=== PATIENT | male | born 1980 | race African-American/Black ===

== ENCOUNTER 2016-07-12 05:24 | Observation (INO) | payer SELFPAY ==
[~2016-07-12] VITALS: Ht 182.9 cm; Wt 115.0 kg
[2016-07-12] VITALS (7 sets, daily range): BP systolic 133–193; BP diastolic 68–98; PULSE 56–74; RESP 16–18; TEMP 98.2; O2SAT 97–99
[~2016-07-12 05:24] MED LIST: IBUP-232 PO; LISI10TA3 PO
[2016-07-12] MEDS ORDERED: SODIUM CHLORIDE 0.9% FLUSH 5 ML FLUSH IVF PRN ×2 (05:45→14:30)
[2016-07-12] MEDS ORDERED: MORPHINE SULFATE 4 MG/ML INJ IV PUSH ONE ×2 (05:45→08:00)
--- NOTE | 2016-07-12 05:49 | PD ---
HPI Chief Complaint: Abdominal Pain Time Seen by Provider: 05:33 Travel History International Travel<30 days: No Contact w/Intl Traveler<30days: No Traveled to known affect area: No History of Present Illness HPI 35-year-old male with history of hypertension, brought in by ambulance for evaluation of chest and abdominal pain. Pain started about 5-6 hours ago, is located in his epigastric and periumbilical area of his abdomen as well as substernal chest. He describes pain as pressure/sharp/tingling sensation. Pain is moderate to severe, constant, no modifying factors. Mild dyspnea. He reports that he has been having a cough lately. No fevers. No known history of cardiac disease. He smokes about a half a pack of cigarettes per day. Patient was noted to have a blood pressure 220 systolic which improved to 170 systolic after EMS administered one sublingual nitroglycerin. They also administered 162 mg of aspirin. PFSH Past Medical History Asthma: Yes Heart Rhythm Problems: No Cardiac Catheterization: No Cardiovascular Problems: Yes High Cholesterol: Yes Congestive Heart Failure: No Diabetes: No Diminished Hearing: No Heparin Induced Thrombocytopen: No Hypertension: Yes Immunizations Current: No Migraines: Yes Sleep Apnea: Yes (USE C-PAP AT NIGHT ) Ulcer: Yes Tetanus Vaccination: > 5 Years Influenza Vaccination: No Past Surgical History Coronary Artery Bypass Graft: No Other Surgery: Yes (LEFT WRIST CYST REMOVED X2) Family History Family Myocardial Infarction: No Social History Alcohol Use: No Tobacco Use: Yes (05/15 PPD) Substance Use: No Allergies-Medications (Allergen,Severity, Reaction): Coded Allergies: Coconut (Verified Allergy, Severe, BREAK OUT, 07/12/16) Reported Meds & Prescriptions Reported Meds & Active Scripts Active Review of Systems Except as stated in HPI: all other systems reviewed are Neg Physical Exam Narrative GENERAL: Well-developed, well-nourished, no acute distress. SKIN: Warm and dry. HEAD: Atraumatic. Normocephalic. EYES: Pupils equal and round. No scleral icterus. No injection or drainage. ENT: Mucous membranes pink and moist. NECK: Trachea midline. No JVD. CARDIOVASCULAR: Regular rate and rhythm. RESPIRATORY: No accessory muscle use. Clear to auscultation. Breath sounds equal bilaterally. GASTROINTESTINAL: Abdomen soft, nondistended. Moderate diffuse tenderness without peritoneal signs. MUSCULOSKELETAL: No obvious deformities. No clubbing. No cyanosis. No edema. NEUROLOGICAL: Awake and alert. No obvious cranial nerve deficits. Motor grossly within normal limits. Normal speech. PSYCHIATRIC: Appropriate mood and affect; insight and judgment normal. Data Data Last Documented VS Vital Signs Date Time Temp Pulse Resp B/P Pulse Ox O2 Delivery O2 Flow Rate FiO2 07/12/16 07:05 61 16 146/81 98 Room Air 07/12/16 05:32 98.2 Orders Complete Blood Count With Diff (07/12/16 05:36) Comprehensive Metabolic Panel (07/12/16 05:36) Lipase (07/12/16 05:36) Prothrombin Time / Inr (Pt) (07/12/16 05:36) Act Partial Throm Time (Ptt) (07/12/16 05:36) Urinalysis - C+S If Indicated (07/12/16 05:36) Ct Abd/Pel W Iv Contrast(Rout) (07/12/16 05:36) Iv Access Insert/Monitor (07/12/16 05:36) Ecg Monitoring (07/12/16 05:36) Oximetry (07/12/16 05:36) Sodium Chloride 0.9% Flush (Ns Flush) (07/12/16 05:45) Electrocardiogram (07/12/16 05:36) Ckmb (Isoenzyme) Profile (07/12/16 05:36) Troponin I (07/12/16 05:36) Morphine Inj (Morphine Inj) (07/12/16 05:45) CKMB (07/12/16 05:45) CKMB% (07/12/16 05:45) Iohexol 350 Inj (Omnipaque 350 Inj) (07/12/16 06:58) Ns (Bolus) Inj (07/12/16 07:30) Piperacil-Tazo 3.375 Gm Premix (Zosyn 3. (07/12/16 07:30) Labs Laboratory Tests Test 07/12/16 07/12/16 05:45 05:50 White Blood Count 14.5 TH/MM3 Red Blood Count 4.55 MIL/MM3 Hemoglobin 14.4 GM/DL Hematocrit 41.4 % Mean Corpuscular Volume 90.9 FL Mean Corpuscular Hemoglobin 31.7 PG Mean Corpuscular Hemoglobin 34.8 % Concent Red Cell Distribution Width 14.0 % Platelet Count 261 TH/MM3 Mean Platelet Volume 8.4 FL Neutrophils (%) (Auto) 75.7 % Lymphocytes (%) (Auto) 17.5 % Monocytes (%) (Auto) 5.6 % Eosinophils (%) (Auto) 0.7 % Basophils (%) (Auto) 0.5 % Neutrophils # (Auto) 11.0 TH/MM3 Lymphocytes # (Auto) 2.5 TH/MM3 Monocytes # (Auto) 0.8 TH/MM3 Eosinophils # (Auto) 0.1 TH/MM3 Basophils # (Auto) 0.1 TH/MM3 CBC Comment DIFF FINAL Differential Comment Prothrombin Time 10.3 SEC Prothromb Time International 0.9 RATIO Ratio Activated Partial 25.8 SEC Thromboplast Time Sodium Level 143 MEQ/L Potassium Level 3.6 MEQ/L Chloride Level 105 MEQ/L Carbon Dioxide Level 29.2 MEQ/L Anion Gap 9 MEQ/L Blood Urea Nitrogen 15 MG/DL Creatinine 1.52 MG/DL Estimat Glomerular Filtration 64 ML/MIN Rate Random Glucose 118 MG/DL Calcium Level 8.7 MG/DL Total Bilirubin 0.4 MG/DL Aspartate Amino Transf 15 U/L (AST/SGOT) Alanine Aminotransferase 22 U/L (ALT/SGPT) Alkaline Phosphatase 56 U/L Total Creatine Kinase 711 U/L Creatine Kinase MB 1.8 NG/ML Creatine Kinase MB % 0.3 % Troponin I LESS THAN 0.02 NG/ML Total Protein 7.4 GM/DL Albumin 3.4 GM/DL Lipase 121 U/L Urine Color YELLOW Urine Turbidity CLEAR Urine pH 6.0 Urine Specific Porter 1.021 Urine Protein TRACE mg/dL Urine Glucose (UA) NEG mg/dL Urine Ketones TRACE mg/dL Urine Occult Blood NEG Urine Nitrite NEG Urine Bilirubin NEG Urine Urobilinogen LESS THAN 2.0 MG/DL Urine Leukocyte Esterase NEG Urine RBC 1 /hpf Urine WBC 2 /hpf Urine Squamous Epithelial <1 /hpf Cells Urine Renal Epithelial Cells <1 /hpf Urine Mucus FEW /lpf Microscopic Urinalysis Comment CULT NOT INDICATED MDM Medical Decision Making Medical Screen Exam Complete: Yes Emergency Medical Condition: Yes Medical Record Reviewed: Yes Interpretation(s) EKG: Sinus, rate 56, normal axis, normal intervals, J-point elevation/early repolarization, nonspecific T-wave abnormality, no acute ischemic abnormality. Differential Diagnosis ACS, pneumothorax, peritonitis, PE, pneumonia, gastritis, peptic ulcer disease, pancreatitis, intra-abdominal infectious process, Narrative Course Initial vital signs show heart rate 61, blood pressure 193/85, pulse ox 97% on room air, oral temp of 98.2F. CBC shows WBC 14.5, hemoglobin 14.4, hematocrit 41.4, platelets 261, neutrophils 75.7%. CMP is remarkable for creatinine 1.52, GFR 64, otherwise unremarkable. Total CK 711. CK-MB is 0.2%. Troponin is negative. Lipase is 121. CT abdomen pelvis: CONCLUSION: 1. Wall thickening as well as pericholecystic fluid suggestive of acute cholecystitis. Clinical correlation is recommended. Rim-calcified gallstone in the expected region of the gallbladder neck. 2. Hepatomegaly. At approximately 7:00 AM at the end of my shift the patient was signed out to Dr. Moses who will consult Gen. surgery and disposition the patient. Isai Mercado MD Jul 12, 2016 05:49
[2016-07-12 06:01] LABS: BASOPHIL # 0.1 TH/MM3 (0-0.2); BASOPHIL % 0.5 % (0.0-2.0); EOSINOPHIL # 0.1 TH/MM3 (0-0.4); EOSINOPHIL % 0.7 % (0.0-4.0); HEMATOCRIT 41.4 % (39.0-51.0); HEMO FLAGS DIFF FINAL; LYMPH % 17.5 % (9.0-44.0); LYMPHOCYTE # 2.5 TH/MM3 (1.0-4.8); MEAN CELL VOLUME 90.9 FL (80.0-100.0); MEAN CORPUSCULAR HEMOGLOBIN 31.7 PG (27.0-34.0); MEAN CORPUSCULAR HGB CONC 34.8 % (32.0-36.0); MONO % 5.6 % (0.0-8.0); NEUT % 75.7 % (16.0-70.0); PLATELET COUNT 261 TH/MM3 (150-450); RED BLOOD COUNT 4.55 MIL/MM3 (4.50-5.90); WHITE BLOOD COUNT 14.5 TH/MM3 (4.0-11.0)
[2016-07-12 06:07] LABS: BLOOD, URINE NEG (NEG); GLUCOSE,URINE NEG (NEG); KETONE, URINE TRACE mg/dL (NEG); MUCUS URINE FEW /lpf (OCC); NITRITE,URINE NEG (NEG); RENAL EPITHELIAL CELLS <1 /hpf; SQUAMOUS EPITHELIAL CELL URINE <1 /hpf (0-5); URINE COLOR YELLOW (YELLW/STRAW)
[2016-07-12 06:08] LABS: COMMENT (UR) CULT NOT INDICATED; CULTURE IF INDICATED CULT NOT INDICATED
[2016-07-12 06:13] LABS: APTT (PATIENT) 25.8 SEC (24.3-30.1); INTERNATIONAL NORMALIZED RATIO 0.9 RATIO; PROTHROMBIN TIME - PATIENT 10.3 SEC (9.8-11.6)
[2016-07-12 06:29] LABS: ANION GAP 9 MEQ/L (5-15); AST (GOT) 15 U/L (15-37); BICARBONATE 29.2 MEQ/L (21.0-32.0); BLOOD UREA NITROGEN 15 MG/DL (7-18); CHLORIDE 105 MEQ/L (98-107); GLOMERULAR FILTRATION RATE 64 ML/MIN (>89); POTASSIUM 3.6 MEQ/L (3.5-5.1); SODIUM (NA) 143 MEQ/L (136-145)
[2016-07-12 06:34] LABS: ALKALINE PHOSPHATASE 56 U/L (45-117); ALT (GPT) 22 U/L (12-78); CREATINE KINASE 711 U/L (39-308); TOTAL BILIRUBIN ADULT 0.4 MG/DL (0.2-1.0)
[2016-07-12 06:46] LABS: CKMB 1.8 NG/ML (0.5-3.6)
[2016-07-12] MEDS ORDERED: IOHEXOL 350 MG/ML 10 ML VIAL (for RAD DIAG) IV ONE (06:58)
--- NOTE | 2016-07-12 07:20 | RADRPT ---
EXAM DATE/TIME: 07/12/2016 06:51 [facility] COMPARISON: CT ABDOMEN & PELVIS W CONTRAST, April 12, 2016, 7:27. INDICATIONS : Epigastric pain for five hours IV CONTRAST: 96 cc Omnipaque 350 (iohexol) IV ORAL CONTRAST: No oral contrast ingested. RADIATION DOSE: 18.51 CTDIvol (mGy) MEDICAL HISTORY : Cardiovascular disease. Hypertension. Asthma. SURGICAL HISTORY : None. ENCOUNTER: Initial ACUITY: 1 day PAIN SCALE: 5/10 LOCATION: epigastric TECHNIQUE: Volumetric scanning of the abdomen and pelvis was performed. Using automated exposure control and ad justment of the mA and/or kV according to patient size, radiation dose was kept as low as reasonably achievable to obtain optimal diagnostic quality images. FINDINGS: LOWER LUNGS: The visualized lower lungs are clear. LIVER: Hepatomegaly is noted. Homogeneous density without lesion. There is no dilation of the biliary tree. There is wall thickening as well as pericholecystic fluid suggestive of acute cholecystitis. Clinica l correlation is recommended. There is a rim-calcified gallstone in the expected region of the gallbl adder neck. SPLEEN: Normal size without lesion. PANCREAS: Within normal limits. KIDNEYS: Normal in size and shape. There is no mass, stone or hydronephrosis. ADRENAL GLANDS: Within normal limits. VASCULAR: There is no aortic aneurysm. BOWEL/MESENTERY: The stomach, small bowel, and colon demonstrate no acute abnormality. There is no free intraperitone al air or fluid. ABDOMINAL WALL: Within normal limits. RETROPERITONEUM: There is no lymphadenopathy. BLADDER: No wall thickening or mass. REPRODUCTIVE: Within normal limits. INGUINAL: There is no lymphadenopathy or hernia. MUSCULOSKELETAL: Within normal limits for patient age. CONCLUSION: 1. Wall thickening as well as pericholecystic fluid suggestive of acute cholecystitis. Clinical corre lation is recommended. Rim-calcified gallstone in the expected region of the gallbladder neck. 2. Hepatomegaly. Bruce Johnson MD on July 12, 2016 at 7:11 Board Certified Radiologist. This report was verified electronically.
[2016-07-12] MEDS ORDERED: SODIUM CHLOR 0.9% 1000 ML INJ 1,000 ML IV ONE (07:30)
[2016-07-12] MEDS ORDERED: PIPERACIL-TAZO 3.375 GM PREMIX 50 ML IV ONE (07:30)
[2016-07-12] MEDS ORDERED: NEOSTIGMINE 3 MG/3 ML SYR IV ONE (08:33)
[2016-07-12] MEDS ORDERED: PROPOFOL 200 MG/20 ML AMP IV ONE (08:33)
[2016-07-12] MEDS ORDERED: ONDANSETRON HCL 4 MG/2 ML VIAL IV PUSH ONE (08:33)
--- NOTE | 2016-07-12 09:35 | EKG ---
Date Performed: 07/12/2016 Time Performed: 05:34:57 PTAGE: 35 years EKG: SINUS BRADYCARDIA NONSPECIFIC T-WAVE ABNORMALITY BORDERLINE ECG PREVIOUS TRACING : 04/12/2016 06.12 DOCTOR: Abhinav Hernadez Interpretating Date/Time 07/12/2016 09:34:51
--- NOTE | 2016-07-12 09:39 | PD ---
Physical Exam Date Seen by Provider: Jul 12, 2016 Time Seen by Provider: 08:00 Narrative 35-year-old male came to the emergency room with history of abdominal pain in the epigastric region. He was seen by the previous ER physician. Please refer to his notes regarding detailed history and physical. His blood work showed leukocytosis. I was signed over to follow-up on the CAT scan which was ordered and waiting to be done and read. The CAT scan report came back as cholecystitis with pericholecystic fluid. I had reassessed the patient and he was saying that the pain was coming back. Patient was medicated for pain again. I have made him nothing by mouth and ordered 1 L of IV fluid bolus and Zosyn as antibiotic. I contacted Dr. Mynor Smith from general surgery who wanted the patient to stay nothing by mouth so that he could take him to the OR. He accepted the patient under his service for admission. I explained all this to the patient and he understands the plan. Data Data Last Documented VS Vital Signs Date Time Temp Pulse Resp B/P Pulse Ox O2 Delivery O2 Flow Rate FiO2 07/12/16 07:05 61 16 146/81 98 Room Air Orders Complete Blood Count With Diff (07/12/16 05:36) Comprehensive Metabolic Panel (07/12/16 05:36) Lipase (07/12/16 05:36) Prothrombin Time / Inr (Pt) (07/12/16 05:36) Act Partial Throm Time (Ptt) (07/12/16 05:36) Urinalysis - C+S If Indicated (07/12/16 05:36) Ct Abd/Pel W Iv Contrast(Rout) (07/12/16 05:36) Iv Access Insert/Monitor (07/12/16 05:36) Ecg Monitoring (07/12/16 05:36) Oximetry (07/12/16 05:36) Sodium Chloride 0.9% Flush (Ns Flush) (07/12/16 05:45) Electrocardiogram (07/12/16 05:36) Ckmb (Isoenzyme) Profile (07/12/16 05:36) Troponin I (07/12/16 05:36) Morphine Inj (Morphine Inj) (07/12/16 05:45) CKMB (07/12/16 05:45) CKMB% (07/12/16 05:45) Iohexol 350 Inj (Omnipaque 350 Inj) (07/12/16 06:58) Sodium Chlor 0.9% 1000 Ml Inj (Ns 1000 M (07/12/16 07:30) Piperacil-Tazo 3.375 Gm Premix (Zosyn 3. (07/12/16 07:30) Morphine Inj (Morphine Inj) (07/12/16 08:00) Admit Order (Ed Use Only) (07/12/16 07:48) Labs Laboratory Tests Test 07/12/16 07/12/16 05:45 05:50 White Blood Count 14.5 TH/MM3 Red Blood Count 4.55 MIL/MM3 Hemoglobin 14.4 GM/DL Hematocrit 41.4 % Mean Corpuscular Volume 90.9 FL Mean Corpuscular Hemoglobin 31.7 PG Mean Corpuscular Hemoglobin 34.8 % Concent Red Cell Distribution Width 14.0 % Platelet Count 261 TH/MM3 Mean Platelet Volume 8.4 FL Neutrophils (%) (Auto) 75.7 % Lymphocytes (%) (Auto) 17.5 % Monocytes (%) (Auto) 5.6 % Eosinophils (%) (Auto) 0.7 % Basophils (%) (Auto) 0.5 % Neutrophils # (Auto) 11.0 TH/MM3 Lymphocytes # (Auto) 2.5 TH/MM3 Monocytes # (Auto) 0.8 TH/MM3 Eosinophils # (Auto) 0.1 TH/MM3 Basophils # (Auto) 0.1 TH/MM3 CBC Comment DIFF FINAL Differential Comment Prothrombin Time 10.3 SEC Prothromb Time International 0.9 RATIO Ratio Activated Partial 25.8 SEC Thromboplast Time Sodium Level 143 MEQ/L Potassium Level 3.6 MEQ/L Chloride Level 105 MEQ/L Carbon Dioxide Level 29.2 MEQ/L Anion Gap 9 MEQ/L Blood Urea Nitrogen 15 MG/DL Creatinine 1.52 MG/DL Estimat Glomerular Filtration 64 ML/MIN Rate Random Glucose 118 MG/DL Calcium Level 8.7 MG/DL Total Bilirubin 0.4 MG/DL Aspartate Amino Transf 15 U/L (AST/SGOT) Alanine Aminotransferase 22 U/L (ALT/SGPT) Alkaline Phosphatase 56 U/L Total Creatine Kinase 711 U/L Creatine Kinase MB 1.8 NG/ML Creatine Kinase MB % 0.3 % Troponin I LESS THAN 0.02 NG/ML Total Protein 7.4 GM/DL Albumin 3.4 GM/DL Lipase 121 U/L Urine Color YELLOW Urine Turbidity CLEAR Urine pH 6.0 Urine Specific [place] 1.021 Urine Protein TRACE mg/dL Urine Glucose (UA) NEG mg/dL Urine Ketones TRACE mg/dL Urine Occult Blood NEG Urine Nitrite NEG Urine Bilirubin NEG Urine Urobilinogen LESS THAN 2.0 MG/DL Urine Leukocyte Esterase NEG Urine RBC 1 /hpf Urine WBC 2 /hpf Urine Squamous Epithelial <1 /hpf Cells Urine Renal Epithelial Cells <1 /hpf Urine Mucus FEW /lpf Microscopic Urinalysis Comment CULT NOT INDICATED MDM Supervised Visit with LACIE: No Physician Communication Physician Communication Dr. Smith Diagnosis Primary Impression: Acute cholecystitis Admitting Information Admitting Physician Requests: Admit Scripts Lisinopril 20 Mg Tab20 Mg PO DAILY #30 TAB Ref 3 Prov:Gutierrez Guzmán DO 07/13/16 Luis Alberto Moses MD Jul 12, 2016 09:39
[2016-07-12] MEDS ORDERED: BUPIVACAINE/EPINEPHRINE 0.25% PF 30 ML VIAL ONE (12:18)
[2016-07-12] MEDS ORDERED: fentaNYL CITRATE 250 MCG/5 ML AMP ONE (12:50)
[2016-07-12] MEDS ORDERED: FAMOTIDINE 20 MG/2 ML VIAL ONE (12:50)
[2016-07-12] MEDS ORDERED: DEXAMETHASONE SOD PHOS 4 MG/ML VIAL ONE (12:51)
[2016-07-12] MEDS ORDERED: MIDAZOLAM HCL 2 MG/2 ML VIAL ONE (12:51)
[2016-07-12] MEDS ORDERED: DICLOFENAC SODIUM 37.5 MG/ML VIAL IV PUSH ONE (12:51)
[2016-07-12] MEDS ORDERED: diphenhydrAMINE HCL 25 MG CAP PO PRN (14:30)
[2016-07-12] MEDS ORDERED: KETOROLAC TROMETHAMINE 30 MG/ML (IVP) VIAL IVP PRN (14:30)
[2016-07-12] MEDS ORDERED: Post-op Orders (for Pharmacy) MISC XX ONE (14:30)
[2016-07-12] MEDS ORDERED: MORPHINE SULFATE 4 MG/ML INJ IV PUSH PRN (14:30)
[2016-07-12] MEDS ORDERED: ONDANSETRON HCL 4 MG/2 ML VIAL IV PRN (14:30)
[2016-07-12] MEDS ORDERED: HYDROmorphone HCL PF 1 MG/ML VIAL IV PRN (14:30)
[2016-07-12] MEDS ORDERED: NALOXONE HCL 0.4 MG/ML AMP IV PRN (14:30)
[2016-07-12] MEDS ORDERED: ACETAMINOPHEN/HYDROcodone 325 MG/5 MG TAB PO PRN (14:30)
--- NOTE | 2016-07-12 14:35 | HHI.PR ---
Immediate Post Op Note Procedure Date: Jul 12, 2016 Pre Op Diagnosis: (1) Acute cholecystitis Post Op Diagnosis: (1) Acute cholecystitis Surgeon: Mynor Smith [employer] Operator(s): alex abel Procedure: lap imani Findings: acute cholecystitis Complications: none Specimen(s) removed: gallbladder Estimated blood loss: 50cc Anesthesia: General Drains: None Patient to: PACU Patient Condition: Good Mynor Smith MD Jul 12, 2016 14:35
[2016-07-12] MEDS ORDERED: ENALAPRILAT 1.25 MG/ML VIAL ONE (14:46)
[2016-07-12] MEDS: LACTATED RINGER'S 1000 ML INJ 1,000 ML IV SCH ×2 (15:00→20:42)
[2016-07-12] MEDS ORDERED: *morphine SULFATE 8 MG/ML PERIprocedure ONLY ONE (15:10)
--- NOTE | 2016-07-12 15:13 | MH ---
cc: AMRIT LAI M.D. DATE OF ADMISSION: 07/12/2016 CHIEF COMPLAINT Abdominal pain. HISTORY OF PRESENT ILLNESS Mr. Melo is a very pleasant 35-year-old -Citizen Of The [place] gentleman who presented to the emergency department this morning via ambulance for severe epigastric abdominal pain and chest pain. He states that he was awakened from sleep in the middle of the night with severe epigastric pain that radiated down toward his umbilical region and through to his sternum and back. It also went to the right side. He described it as a sharp pain with pressure. It was severe according to him. He was slightly short of breath secondary to the pain. He called 911 and was brought to the emergency room where he was worked up. He was seen and evaluated by Dr. Mercado and upon evaluation was found to have acute cholecystitis. The patient reports that he had a similar episode several months ago and was told it was not his heart but he was not told it was his gallbladder. He said the pain is almost identical. He had associated nausea, no vomiting. He had no fever or chills. Apparently he was hypertensive when EMS arrived and they gave him some nitroglycerin and got his blood pressure down to a normal level. The patient denies any jaundice or acholic stools. He states he ate some fried chicken yesterday. PAST MEDICAL HISTORY 1. Hypertension. 2. Sleep apnea. PAST SURGICAL HISTORY He had a Hernández's cyst removed from his right hand as a child. MEDICATIONS He takes no active medications. ALLERGIES HE IS ALLERGIC TO COCONUTS WHICH CAUSES HIVES AND SHORTNESS OF BREATH. FAMILY HISTORY Noncontributory. SOCIAL HISTORY He denies alcohol use. He reports smoking about 10 cigarettes a day. He lives here locally with his family. He is employed at [employer] as a cook. REVIEW OF SYSTEMS Please see HPI. PHYSICAL EXAMINATION VITAL SIGNS: Temperature 98, pulse 70, blood pressure 150/90, respiratory rate 20. GENERAL: In general this is a pleasant, obese -Citizen Of [place] male sitting in the emergency department in no apparent distress. HEENT: Pupils equal and reactive to light. Sclera white. Oropharynx is clear and moist. NECK: Supple. No masses. LUNGS: Clear to auscultation bilaterally. HEART: S1, S2, no murmur. ABDOMEN: Soft. Tender in the epigastric and right upper quadrant region with a positive Santos's sign. No hernias. EXTREMITIES: Free range of motion x4. NEUROLOGIC: Alert oriented x3. IMAGING CT scan of the abdomen and pelvis shows a gallstone lodged in the neck of the gallbladder with pericholecystic fluid, gallbladder wall edema, all consistent with acute cholecystitis LABORATORY White blood cell count 14, hemoglobin 14, platelet count 261. Electrolytes are all within normal limits. Slight elevation of creatinine at 1.52. LFTs all within normal limits. Troponin is less than 0.02. IMPRESSION Acute cholecystitis. PLAN The risks and benefits of cholecystectomy were discussed with the patient and he is agreeable. The Operating Room was notified at 0800 that I was available and the patient was ready to go to surgery. The patient will be worked in at some point today but the OR is not certain of the time. I discussed this with the patient and he is aware of the situation. MD KIM Morton/MARY /2:31 PM /3:02 PM
[2016-07-12] MEDS ORDERED: hydrALAZINE HCL 20 MG/ML VIAL ONE ×2 (15:21→16:46)
--- NOTE | 2016-07-12 15:21 | MP ---
cc: AMRIT LAI M.D. DATE OF SURGERY: 07/12/2016 PREOPERATIVE DIAGNOSIS Acute cholecystitis. POSTOPERATIVE DIAGNOSIS Acute cholecystitis. PROCEDURE PERFORMED Laparoscopic cholecystectomy. SURGEON Amrit Lai ANESTHESIA General endotracheal. COMPLICATIONS None. INDICATION FOR PROCEDURE Mr. Melo is a very pleasant 35-year-old gentleman who presented to the emergency department early this morning with complaints of severe abdominal pain and chest pain. He was worked up and found to have acute cholecystitis. He now presents for cholecystectomy. The risks and benefits of open and laparoscopic cholecystectomy was discussed with him and he was agreeable. DETAILS OF PROCEDURE The patient was identified, brought to the operating room and placed supine on the operating table. After adequate general endotracheal anesthesia had been achieved, the abdomen was prepped and draped in standard surgical fashion. The infraumbilical space was anesthetized 0.25% Marcaine. An infraumbilical incision was made. Dissection was carried down through subcutaneous tissue to the midline fascia. The midline fascia was incised sharply. A finger was then placed in the peritoneal cavity without difficulty. A blunt balloon trocar is inserted and the abdomen was insufflated to 15 mmHg using CO2 gas. Next, two 5 mm trocars were placed in the right upper quadrant after anesthetizing the skin and subcutaneous tissue with 0.25% Marcaine. Attention was directed to the right upper quadrant where a distended gallbladder was identified. There was a large stone lodged in the neck of the gallbladder. The gallbladder was retracted cephalad. The neck of the gallbladder was then carefully dissected. The cystic duct and cystic artery were clearly seen entering the neck of the gallbladder. They were dissected and confirmed in two planes. They were then clipped twice proximally, once distally and then divided. The gallbladder was then dissected out of the hepatic fossa using electrocautery Bovie. The gallbladder was then placed into an Endopouch bag and brought out through the infraumbilical port. We did have to enlarge the infraumbilical fascia incision in order to retrieve the gallbladder due to the large stone lodged in the neck. The gallbladder was inspected and found to contain a large stone wedged in the neck of it, and the clips were in place on the cystic duct stump without evidence of leakage of bile. The gallbladder was sent to pathology for analysis. Next, the abdominal cavity was re-visualized. The liver bed was completely hemostatic. Clips on the cystic artery and cystic duct stump were clearly seen and there was no evidence of leakage of bile or bleeding. 0.25% Marcaine was injected in the right upper quadrant. The abdomen was then carefully desufflated. The midline fascia was repaired with 0 Vicryl in [id number] fashion. Skin was closed with 4-0 Vicryl. The patient tolerated the procedure well, was awakened and brought to Recovery in stable condition. MD KIM Morton/MARY /2:31 PM /3:13 PM .2
[2016-07-12] MEDS ORDERED: MORPHINE SULFATE 4 MG/ML INJ ONE (16:47)
[2016-07-12] MEDS ORDERED: hydrALAZINE HCL 20 MG/ML VIAL IVP SCH (17:00)
[2016-07-12] MEDS ORDERED: cloNIDine HCL 0.1 MG TAB ONE (17:39)
[2016-07-12] MEDS: SODIUM CHLORIDE 0.9% FLUSH 5 ML FLUSH IVF SCH (20:43)
[2016-07-12] MEDS: ACETAMINOPHEN/HYDROcodone 325 MG/5 MG TAB PO PRN (20:45)
[2016-07-13] VITALS: BP 154/81; PULSE 69; RESP 16; TEMP 97.8; O2SAT 99
[2016-07-13] MEDS: ACETAMINOPHEN/HYDROcodone 325 MG/5 MG TAB PO PRN ×3 (00:31→13:21)
[2016-07-13 04:00] VITALS: BP 157/87; PULSE 50; RESP 17; TEMP 98.2; O2SAT 99
[2016-07-13 08:00] VITALS: BP 152/92; PULSE 59; RESP 18; TEMP 97.3; O2SAT 97
[2016-07-13] MEDS: SODIUM CHLORIDE 0.9% FLUSH 5 ML FLUSH IVF SCH (08:25)
[2016-07-13] MEDS ORDERED: amLODIPine BESYLATE 5 MG TAB PO SCH (09:30)
[2016-07-13 09:46] VITALS: O2SAT 98
[2016-07-13] MEDS ORDERED: LISI-515 PO (09:48)
[2016-07-13] MEDS ORDERED: HYDR-3516 PO (09:48)
--- NOTE | 2016-07-13 09:54 | PD.CONS ---
HPI Service [facility] Hospitalists Consult Requested By General surgery Reason for Consult Hypertension Primary Care Physician No Primary Care Physician Diagnoses: (1) Acute cholecystitis (2) Hypertension History of Present Illness Mr. Melo is a pleasant 35-year-old male who presented to the emergency department on 07/12/2016 with epigastric abdominal pain and chest pain. Workup indicated acute cholecystitis. Patient underwent cholecystectomy by general surgery. Hospitalist service was consulted for hypertension. Patient reports that he used to take lisinopril 10 mg daily but ran out of prescription and has not taken in a while. Patient denies any chest pain, shortness of breath, fever or chills. However he does report sometimes his blood pressure goes up and he feels headache. Denies any changes in bowel or bladder habits. Review of Systems ROS Limitations: Other (negative except as noted in the history of present illness) Past Family Social History Allergies: Coded Allergies: Coconut (Verified Allergy, Severe, BREAK OUT, 07/12/16) Past Medical History Hypertension Past Surgical History Minus surgeries including ankle surgery and wrist surgery. Reported Medications Does not take any medication on a regular basis. Family History Motherarthritis, grandmother - diabetes mellitus. Social History Smokes half pack a day. Denies using alcohol or illicit drugs. Physical Exam Vital Signs Vital Signs Date Time Temp Pulse Resp B/P Pulse Ox O2 Delivery O2 Flow Rate FiO2 07/13/16 09:46 98 07/13/16 08:00 97.3 59 18 152/92 97 07/13/16 04:00 98.2 50 17 157/87 99 07/13/16 00:00 97.8 69 16 154/81 99 07/12/16 18:30 84 14 163/80 99 Room Air 07/12/16 18:15 71 14 156/99 99 Room Air 07/12/16 18:00 98.3 63 14 169/102 99 Room Air 07/12/16 17:30 78 15 178/110 99 Room Air 07/12/16 17:00 76 14 161/96 99 Nasal Cannula 3 07/12/16 16:30 66 15 161/105 98 Nasal Cannula 3 07/12/16 16:15 66 14 166/94 98 Nasal Cannula 3 07/12/16 16:00 98.0 75 14 172/99 98 Nasal Cannula 3 07/12/16 15:45 88 15 187/107 99 Nasal Cannula 3 07/12/16 15:30 62 14 176/104 96 Nasal Cannula 3 07/12/16 15:15 59 14 192/16 96 Simple Mask 6 07/12/16 15:00 59 15 192/119 100 Simple Mask 6 07/12/16 14:45 63 15 209/115 99 Simple Mask 6 07/12/16 14:36 98.5 66 14 196/105 96 Simple Mask 6 07/12/16 11:51 56 17 133/73 98 Room Air 07/12/16 10:44 64 16 141/68 98 Room Air Physical Exam GENERAL: This is a well-nourished, well-developed patient, in no apparent distress. SKIN: No rashes, ecchymoses or lesions. Warm and dry. HEAD: Atraumatic. Normocephalic. No temporal or scalp tenderness. EYES: Pupils equal round and reactive. No injection or drainage. ENT: Nose without bleeding, purulent drainage or septal hematoma. Airway patent. NECK: Trachea midline. No lymphadenopathy. Supple, nontender, no meningeal signs. CARDIOVASCULAR: Regular rate and rhythm without murmurs, gallops, or rubs. No JVD. RESPIRATORY: Clear to auscultation. Breath sounds equal bilaterally. No wheezes , rales, or rhonchi. GASTROINTESTINAL: Abdomen soft, non-tender, nondistended. No guarding. s/p Lap Guerline. MUSCULOSKELETAL: Extremities without clubbing, cyanosis, or edema. NEUROLOGICAL: Awake and alert. Cranial nerves II through XII intact. No focal neurological deficits. Normal speech. Result Diagram: 07/12/16 0545 07/12/16 0545 Imaging Last Impressions Abdomen/Pelvis CT 07/12/16 0536 Signed Impressions: Service Date/Time: Tuesday, July 12, 2016 06:51 - CONCLUSION: 1. Wall thickening as well as pericholecystic fluid suggestive of acute cholecystitis. Clinical correlation is recommended. Rim-calcified gallstone in the expected region of the gallbladder neck. 2. Hepatomegaly. Bruce Johnson MD Assessment and Plan Problem List: (1) Acute cholecystitis ICD Code: K81.0 Status: Acute (2) Hypertension ICD Code: I10 Status: Acute (3) CKD (chronic kidney disease) stage 2, GFR 60-89 ml/min ICD Code: N18.2 Status: Acute (4) Tobacco abuse ICD Code: Z72.0 Status: Acute Assessment and Plan Mr. Melo is a 35-year-old [place] male with a history of hypertension who presented to the emergency department on 07/12/2016 with epigastric abdominal pain and chest pain. Patient underwent laparoscopic cholecystectomy for acute cholecystitis. Hospitalist service was consulted for hypertension. - Acute cholecystitis - status post laparoscopic cholecystectomy. Pain medication per surgery. - Hypertension - counseled patient extensively regarding lifestyle modification. Discussed about various pharmacological options. In patients with CKD, David inhibitor or ARB would be recommended. We'll start patient on lisinopril 20 mg daily. This can be titrated by primary care physician. Case management to arrange patient's assistance. - CKD stage II - discussed with patient regarding the importance of quitting smoking, controlling hypertension. Patient is also advised not to take NSAIDs on a regular basis. - Tobacco abuse - discussed with patient regarding harm of tobacco on his overall health including cardiac, pulmonary. Patient verbalized understanding. Thank you for the consult. Patient can be discharged from medical standpoint. Discussed with general surgery. Gutierrez Guzmán DO Jul 13, 2016 9:54 am
[2016-07-13] MEDS ORDERED: LISINOPRIL 20 MG TAB PO SCH (11:00)
[2016-07-13] MEDS: LACTATED RINGER'S 1000 ML INJ 1,000 ML IV SCH (11:00)
[2016-07-13 12:00] VITALS: BP 138/75; PULSE 56; RESP 16; TEMP 96.8; O2SAT 99
[2016-07-13] MEDS ORDERED: HYDR-3288 PO (14:02)
== END 2016-07-13 15:12 | disposition home or self-care (01) ==
LOC: NEPC 05:24 → INTOOBSV 07:51 → NEDA 07:51 → NEDH 11:50 → N07A 18:54
PROVIDERS: ADMIT Surgery Trauma Surgery; ATTEND Surgery Trauma Surgery
DX: K81.0 Acute cholecystitis (principal); N18.2 Chronic kidney disease, stage 2 (mild); I12.9 Hypertensive chronic kidney disease with stage 1 through stage 4 chronic kidney disease, or unspecified chronic kidney disease; F17.210 Nicotine dependence, cigarettes, uncomplicated; E78.00 Pure hypercholesterolemia, unspecified; G47.30 Sleep apnea, unspecified; R16.0 Hepatomegaly, not elsewhere classified
CPT/HCPCS: 00790; 47562; 74177; 80053; 81001; 82550; 82552; 83690; 84484; 85025; 85610; 85730; 88304; 93005; 94150; 96374; 96375; 99285; G0378; J1100; J1130; J2250; J2270; J2405; J2543; J2710; J3010; J7030; J7120; Q9967; J0360

== ENCOUNTER 2016-09-22 00:48 | Inpatient (IN) | payer SELFPAY ==
[~2016-09-22] VITALS: Ht 193 cm; Wt 110.8 kg
[2016-09-22] VITALS (12 sets, daily range): BP systolic 121–211; BP diastolic 80–116; PULSE 62–90; RESP 16–20; TEMP 98.1–98.7; O2SAT 96–100
[~2016-09-22 00:48] MED LIST changes: +HYDR-3288 PO; -IBUP-232 PO; +LISI-515 PO; -LISI10TA3 PO
[2016-09-22] MEDS ORDERED: SODIUM CHLOR 0.9% 1000 ML INJ 1,000 ML IV SCH ×2 (00:58→04:24)
[2016-09-22] MEDS ORDERED: SODIUM CHLORIDE 0.9% FLUSH 10 ML FLUSH IV FLUSH PRN (01:00)
[2016-09-22] MEDS ORDERED: MORPHINE SULFATE 4 MG/ML INJ IV PUSH ONE (01:00)
[2016-09-22] MEDS ORDERED: ONDANSETRON HCL 4 MG/2 ML VIAL IVP ONE (01:00)
[2016-09-22 01:09] LABS: AUTOMATED NEUTROPHIL # 6.7 TH/MM3 (1.8-7.7); BASOPHIL # 0.1 TH/MM3 (0-0.2); BASOPHIL % 1.1 % (0.0-2.0); EOSINOPHIL # 0.1 TH/MM3 (0-0.4); EOSINOPHIL % 1.1 % (0.0-4.0); HEMATOCRIT 41.8 % (39.0-51.0); HEMO FLAGS DIFF FINAL; LYMPH % 23.2 % (9.0-44.0); LYMPHOCYTE # 2.3 TH/MM3 (1.0-4.8); MEAN CELL VOLUME 89.5 FL (80.0-100.0); MEAN CORPUSCULAR HEMOGLOBIN 30.5 PG (27.0-34.0); MONO % 7.9 % (0.0-8.0); NEUT % 66.7 % (16.0-70.0); PLATELET COUNT 237 TH/MM3 (150-450); RED BLOOD COUNT 4.67 MIL/MM3 (4.50-5.90); RED CELL DISTRIBUTION WIDTH 14.6 % (11.6-17.2); WHITE BLOOD COUNT 10.1 TH/MM3 (4.0-11.0)
[2016-09-22 01:31] LABS: ALT (GPT) 20 U/L (12-78); ANION GAP 8 MEQ/L (5-15); AST (GOT) 19 U/L (15-37); BLOOD UREA NITROGEN 16 MG/DL (7-18); CHLORIDE 111 MEQ/L (98-107); GLOMERULAR FILTRATION RATE 36 ML/MIN (>89); POTASSIUM 3.7 MEQ/L (3.5-5.1); SODIUM (NA) 145 MEQ/L (136-145)
[2016-09-22 01:34] LABS: ALKALINE PHOSPHATASE 63 U/L (45-117); TOTAL BILIRUBIN ADULT 0.5 MG/DL (0.2-1.0)
--- NOTE | 2016-09-22 01:47 | PD ---
HPI Chief Complaint: Abdominal Pain Time Seen by Provider: 00:58 Travel History International Travel<30 days: No Contact w/Intl Traveler<30days: No Traveled to known affect area: No History of Present Illness HPI This is a 36-year-old gentleman with a history of hypertension, who presents today with complaints of abdominal pain. The patient is status post cholecystectomy 6 weeks ago. The patient reports pain in his lower abdomen that started this morning. He reports it as a continuous sharp pain in his umbilical area radiating down to his pelvis. He denies any dysuria, urgency, frequency. He does report associated nausea and vomiting. Last bowel movement was yesterday. He states that he has not been passing gas at all either. No fevers, chills. No urinary symptoms. There are no other complaints time my examination. PFSH Past Medical History Asthma: Yes Heart Rhythm Problems: No Cardiac Catheterization: No Cardiovascular Problems: Yes High Cholesterol: Yes Congestive Heart Failure: No Diabetes: No Diminished Hearing: No Heparin Induced Thrombocytopen: No Hypertension: Yes Immunizations Current: No Migraines: Yes Sleep Apnea: Yes (USE C-PAP AT NIGHT ) Ulcer: Yes Past Surgical History Cholecystectomy: Yes Coronary Artery Bypass Graft: No Other Surgery: Yes (LEFT WRIST CYST REMOVED X2) Social History Alcohol Use: No Tobacco Use: Yes (1/2 PPD) Substance Use: No Allergies-Medications (Allergen,Severity, Reaction): Coded Allergies: Coconut (Verified Allergy, Severe, BREAK OUT, 07/12/16) Reported Meds & Prescriptions Reported Meds & Active Scripts Active Lisinopril 20 Mg Tab 20 Mg PO DAILY Reported [place] (Hydrocodone-Acetaminophen) 7.5-325 mg Tab 1-2 Tab PO Q4H PRN Review of Systems Except as stated in HPI: all other systems reviewed are Neg General / Constitutional: No: Fever, Chills HENT: No: Headaches Cardiovascular: No: Chest Pain or Discomfort, Palpitations Respiratory: No: Cough, Shortness of Breath Gastrointestinal: Positive: Nausea, Vomiting, Abdominal Pain (periumbilical and infraumbilical), Constipation, No: Diarrhea Genitourinary: No: Dysuria, Decreased Urinary Output Musculoskeletal: No: Weakness, Pain Neurologic: No: Weakness, Headache Physical Exam Narrative GENERAL: Well-nourished, well-developed patient. SKIN: Focused skin assessment warm/dry. HEAD: Normocephalic/atraumatic. EYES: No scleral icterus. No injection or drainage. NECK: Supple, trachea midline. CARDIOVASCULAR: Regular rate and rhythm without murmurs, gallops, or rubs. RESPIRATORY: Breath sounds equal bilaterally. No accessory muscle use. GASTROINTESTINAL: Abdomen is soft, nondistended. He has tenderness to palpation in his periumbilical area and infraumbilical area. There is no rebound or guarding. MUSCULOSKELETAL: No cyanosis, or edema. NEUROLOGICAL: Awake and alert. Cranial nerves II through XII intact. Motor grossly within normal limits. Five out of 5 muscle strength in all muscle groups. Normal speech. Data Data Last Documented VS Vital Signs Date Time Temp Pulse Resp B/P Pulse Ox O2 Delivery O2 Flow Rate FiO2 09/22/16 04:00 64 16 211/115 96 09/22/16 04:00 Room Air 09/22/16 00:50 98.7 Orders Complete Blood Count With Diff (09/22/16 00:58) Comprehensive Metabolic Panel (09/22/16 00:58) Lipase (09/22/16 00:58) Urinalysis - C+S If Indicated (09/22/16 00:58) Iv Access Insert/Monitor (09/22/16 00:58) Ecg Monitoring (09/22/16 00:58) Oximetry (09/22/16 00:58) Morphine Inj (Morphine Inj) (09/22/16 01:00) Ondansetron Inj (Zofran Inj) (09/22/16 01:00) Sodium Chlor 0.9% 1000 Ml Inj (Ns 1000 M (09/22/16 00:58) Sodium Chloride 0.9% Flush (Ns Flush) (09/22/16 01:00) Oral Contrast - Adult (09/22/16 01:48) Ct Abd/Pel W/O Iv Contrast (09/22/16 02:14) Diatrizoate Liq ( Gastroview Liq) (09/22/16 02:30) Morphine Inj (Morphine Inj) (09/22/16 02:45) Labetalol Inj (Trandate Inj) (09/22/16 04:15) Acetamin-Hydrocod 325-7.5 Mg ([place] 7.5 (09/22/16 04:30) Admit To Inpatient (09/22/16 ) Vital Signs (Adult) Q4H (09/22/16 04:24) Activity Oob Ad [place] (09/22/16 04:24) Diet Regular Basic (09/22/16 Breakfast) Sodium Chlor 0.9% 1000 Ml Inj (Ns 1000 M (09/22/16 04:24) Sodium Chloride 0.9% Flush (Ns Flush) (09/22/16 04:30) Sodium Chloride 0.9% Flush (Ns Flush) (09/22/16 09:00) Acetaminophen (Tylenol) (09/22/16 04:30) Ondansetron Inj (Zofran Inj) (09/22/16 04:30) Docusate Sodium (Colace) (09/22/16 04:30) Basic Metabolic Panel (Bmp) (09/23/16 06:00) Complete Blood Count With Diff (09/23/16 06:00) Naloxone Inj (Narcan Inj) (09/22/16 04:30) Amlodipine (Norvasc) (09/22/16 09:00) Inpatient Certification (09/22/16 ) Admit Order (Ed Use Only) (09/22/16 04:26) Labs Laboratory Tests Test 09/22/16 09/22/16 00:45 03:00 White Blood Count 10.1 TH/MM3 Red Blood Count 4.67 MIL/MM3 Hemoglobin 14.2 GM/DL Hematocrit 41.8 % Mean Corpuscular Volume 89.5 FL Mean Corpuscular Hemoglobin 30.5 PG Mean Corpuscular Hemoglobin 34.0 % Concent Red Cell Distribution Width 14.6 % Platelet Count 237 TH/MM3 Mean Platelet Volume 8.1 FL Neutrophils (%) (Auto) 66.7 % Lymphocytes (%) (Auto) 23.2 % Monocytes (%) (Auto) 7.9 % Eosinophils (%) (Auto) 1.1 % Basophils (%) (Auto) 1.1 % Neutrophils # (Auto) 6.7 TH/MM3 Lymphocytes # (Auto) 2.3 TH/MM3 Monocytes # (Auto) 0.8 TH/MM3 Eosinophils # (Auto) 0.1 TH/MM3 Basophils # (Auto) 0.1 TH/MM3 CBC Comment DIFF FINAL Differential Comment Sodium Level 145 MEQ/L Potassium Level 3.7 MEQ/L Chloride Level 111 MEQ/L Carbon Dioxide Level 26.0 MEQ/L Anion Gap 8 MEQ/L Blood Urea Nitrogen 16 MG/DL Creatinine 2.50 MG/DL Estimat Glomerular Filtration 36 ML/MIN Rate Random Glucose 96 MG/DL Calcium Level 8.9 MG/DL Total Bilirubin 0.5 MG/DL Aspartate Amino Transf 19 U/L (AST/SGOT) Alanine Aminotransferase 20 U/L (ALT/SGPT) Alkaline Phosphatase 63 U/L Total Protein 7.0 GM/DL Albumin 3.1 GM/DL Lipase 136 U/L Urine Color LIGHT-YELLOW Urine Turbidity CLEAR Urine pH 6.5 Urine Specific [place] 1.008 Urine Protein 30 mg/dL Urine Glucose (UA) NEG mg/dL Urine Ketones NEG mg/dL Urine Occult Blood NEG Urine Nitrite NEG Urine Bilirubin NEG Urine Urobilinogen LESS THAN 2.0 MG/DL Urine Leukocyte Esterase MOD Urine RBC 1 /hpf Urine WBC 4 /hpf Urine Squamous Epithelial <1 /hpf Cells Urine Renal Epithelial Cells <1 /hpf Urine Bacteria RARE /hpf Microscopic Urinalysis Comment CULT NOT INDICATED MDM Medical Decision Making Medical Screen Exam Complete: Yes Emergency Medical Condition: Yes Differential Diagnosis Gastroenteritis versus appendicitis versus abscess versus bowel obstruction Narrative Course 36-year-old male with history of uncontrolled hypertension, renal insufficiency , previous cholecystitis 6 weeks ago, who presents today with complaints of nausea vomiting with abdominal pain. The patient denies any fevers, chills. CT scan of the and pelvis without IV contrast shows no evidence of acute pathology. Patient's creatinine has increased from 1.5-2.5. His GFR is decreased nearly half to 36. Given this, the patient be admitted. He will also need blood pressure control as his blood pressure was elevated. He's been given labetalol 5 mg times one dose. Case was discussed with Dr. Palomares[facility] who agreed to admit the patient to her service. Diagnosis Primary Impression: Acute renal failure superimposed on stage 2 chronic kidney disease Additional Impressions: Abdominal pain Uncontrolled hypertension Orville Luo MD September 22, 2016 01:47
[2016-09-22] MEDS ORDERED: DIATRIZOATE MEGLUM/DIATRIZOATE SOD 9 ML CUP ONE (02:30)
[2016-09-22] MEDS ORDERED: MORPHINE SULFATE 4 MG/ML INJ IV ONE (02:45)
[2016-09-22 03:23] LABS: BACTERIA, URINE RARE /hpf; BLOOD, URINE NEG (NEG); COMMENT (UR) CULT NOT INDICATED; CULTURE IF INDICATED CULT NOT INDICATED; GLUCOSE,URINE NEG (NEG); KETONE, URINE NEG (NEG); NITRITE,URINE NEG (NEG); PH, URINE 6.5 (5.0-8.5); RENAL EPITHELIAL CELLS <1 /hpf; SQUAMOUS EPITHELIAL CELL URINE <1 /hpf (0-5); URINE COLOR LIGHT-YELLOW (YELLW/STRAW)
--- NOTE | 2016-09-22 04:09 | RADRPT ---
EXAM DATE/TIME: 09/22/2016 03:49 CORRECTION Corrected on: September 22, 2016; [place] COMPARISON: CT ABDOMEN & PELVIS W CONTRAST, July 12, 2016, 6:51. INDICATIONS : Bilateral lower quadrant pain. Nausea and vomiting. ORAL CONTRAST: Prescribed oral contrast ingested. RADIATION DOSE: 10.49 CTDIvol (mGy) MEDICAL HISTORY : Hypertension. Ulcers. SURGICAL HISTORY : Cholecystectomy. ENCOUNTER: Initial ACUITY: 1 day PAIN SCALE: 10/10 LOCATION: Bilateral lower quadrant TECHNIQUE: Volumetric scanning of the abdomen and pelvis was performed. Using automated exposure control and ad justment of the mA and/or kV according to patient size, radiation dose was kept as low as reasonably achievable to obtain optimal diagnostic quality images. The lack of IV contrast limits the diagnosis for certain organ pathology. FINDINGS: LOWER LUNGS: The visualized lower lungs are clear. LIVER: Homogeneous density without lesion. There is no dilation of the biliary tree. No gallbladder, surgi toni removed. SPLEEN: Normal size without lesion. PANCREAS: Within normal limits. KIDNEYS: Normal in size and shape. There is no mass, stone, or hydronephrosis. ADRENAL GLANDS: Within normal limits. VASCULAR: There is no aortic aneurysm. BOWEL/MESENTERY: The stomach, small bowel, and colon demonstrate no acute abnormality. There is no free intraperitone al air or fluid. No inflammatory changes. There is stool in the colon. ABDOMINAL WALL: Within normal limits. RETROPERITONEUM: There is no lymphadenopathy. BLADDER: No wall thickening or mass. REPRODUCTIVE: Within normal limits. INGUINAL: There is no lymphadenopathy or hernia. MUSCULOSKELETAL: Within normal limits for patient age. Except for the cholecystectomy, no new or significant changes are seen compared to the prior study. CONCLUSION: 1. Status post cholecystectomy. 2. No acute abdominal/pelvic pathology. Francisco Carvalho MD on September 22, 2016 at 4:05 Board Certified Radiologist. This report was verified electronically. Francisco Carvalho MD on September 22, 2016 at 4:21 Board Certified Radiologist. This report was verified electronically.
[2016-09-22] MEDS ORDERED: LABETALOL HCL 100 MG/20 ML VIAL IV PUSH ONE (04:15)
[2016-09-22] MEDS ORDERED: NALOXONE HCL 0.4 MG/ML AMP IV PRN (04:30)
[2016-09-22] MEDS ORDERED: ACETAMINOPHEN 325 MG TAB PO PRN (04:30)
[2016-09-22] MEDS ORDERED: HYDROmorphone HCL PF 1 MG/ML VIAL IV PUSH ONE (04:45)
[2016-09-22] MEDS ORDERED: CYCLOBENZAPRINE HCL 10 MG TAB PO ONE (04:45)
[2016-09-22] MEDS: DOCUSATE SODIUM 100 MG CAP PO SCH ×2 (04:48→17:25)
--- NOTE | 2016-09-22 04:52 | HHI.HP ---
[facility] No Primary Care Physician Admission Diagnosis Acute on chronic kidney injury, uncontrolled htn, abdominal pain. Diagnoses: Chief Complaint: Abdominal pain Travel History International Travel<30 Days: No Contact w/Intl Traveler <30 Da: No Traveled to Known Affected Are: No History of Present Illness This a 36 year old male patient with past medical history which includes sleep apnea which no longer requires CPAP as he has lost 100 pounds and hypertension. Patient had a cholecystomy approximally 6 weeks ago was recovering well then woke up between 9-10 this AM due to severe abdominal pain in the periumbilical/midepigastric area. The pain was associated with N/V x1. Patient describes the pain as a spasm. Abdominal pain only slightly better after morphine 4 mg x2. Patient has also been having constipation x 1 day. Patient reports abdominal pain feels as though it's, "jumping," and is worse with movement. Patient denies dysuria, penile pain or discharge. Patient also denies chest pain or shortness of breath. Review of Systems Except as stated in HPI: all other systems reviewed are Neg Past Family Social History Past Medical History Sleep apnea- no longer needs CPaP after he lost 100 lbs HTN Past Surgical History cholecystectomy ganglion cyst removed wrist Reported Medications Lisinopril 20 Mg Tab 20 Mg PO DAILY [place] (Hydrocodone-Acetaminophen) 7.5-325 mg Tab 1-2 Tab PO Q4H PRN Allergies: Coded Allergies: Coconut (Verified Allergy, Severe, BREAK OUT, 07/12/16) Active Ordered Medications Current Medications Medications (Trade) Dose Ordered Sig/Marnie Route Start Time Stop Time Status Last Admin Acetaminophen/ Hydrocodone Bitart 1 tab 1 tab Q4H PRN PO 09/22/16 04:30 (NS 1000 ml Inj) 1,000 ml @ 125 mls/hr Q8H IV 09/22/16 04:24 09/22/16 12:23 09/22/16 04:46 (NS Flush) 2 ml UNSCH PRN IV FLUSH 09/22/16 04:30 (NS Flush) 2 ml BID IV FLUSH 09/22/16 09:00 (Tylenol) 650 mg Q4H PRN PO 09/22/16 04:30 (Zofran Inj) 4 mg Q6H PRN IVP 09/22/16 04:30 (Colace) 100 mg Q12H PO 09/22/16 04:30 09/22/16 04:48 (Narcan Inj) 0.4 mg UNSCH PRN IV 09/22/16 04:30 (Norvasc) 5 mg DAILY PO 09/22/16 09:00 (Apresoline Inj) 10 mg Q30M PRN IV PUSH 09/22/16 04:45 Family History Motherarthritis, grandmother - diabetes mellitus and gout Social History Smokes half pack a day started smoking at age 10. Denies using alcohol or illicit drugs at this time. Cocaine last used 05/2016 marijuana in the past Physical Exam Vital Signs Vital Signs Date Time Temp Pulse Resp B/P Pulse Ox O2 Delivery O2 Flow Rate FiO2 09/22/16 04:00 64 16 211/115 96 09/22/16 04:00 98 Room Air 09/22/16 04:00 62 19 194/106 96 09/22/16 00:50 98.7 77 16 192/111 99 Physical Exam GENERAL: This is a well-nourished, well-developed patient, appears painful with movement SKIN: No rashes, ecchymoses or lesions. Cool and dry. HEAD: Atraumatic. Normocephalic. No temporal or scalp tenderness. EYES: Extraocular motions intact. No scleral icterus. No injection or drainage. CARDIOVASCULAR: Regular rate and rhythm without murmurs, gallops, or rubs. RESPIRATORY: Clear to auscultation. Breath sounds equal bilaterally. No wheezes , rales, or rhonchi. GASTROINTESTINAL: Abdomen soft, tender to palpation periumbilical and epigastric , nondistended. No guarding. MUSCULOSKELETAL: Extremities without clubbing, cyanosis, or edema. No joint tenderness, effusion, or edema noted. No calf tenderness. Negative Homans sign bilaterally. NEUROLOGICAL: Awake and alert. Motor and sensory grossly within normal limits. Five out of 5 muscle strength in all muscle groups. Normal speech. Laboratory Laboratory Tests Test 09/22/16 09/22/16 00:45 03:00 White Blood Count 10.1 Red Blood Count 4.67 Hemoglobin 14.2 Hematocrit 41.8 Mean Corpuscular Volume 89.5 Mean Corpuscular Hemoglobin 30.5 Mean Corpuscular Hemoglobin 34.0 Concent Red Cell Distribution Width 14.6 Platelet Count 237 Mean Platelet Volume 8.1 Neutrophils (%) (Auto) 66.7 Lymphocytes (%) (Auto) 23.2 Monocytes (%) (Auto) 7.9 Eosinophils (%) (Auto) 1.1 Basophils (%) (Auto) 1.1 Neutrophils # (Auto) 6.7 Lymphocytes # (Auto) 2.3 Monocytes # (Auto) 0.8 Eosinophils # (Auto) 0.1 Basophils # (Auto) 0.1 CBC Comment DIFF FINAL Differential Comment Sodium Level 145 Potassium Level 3.7 Chloride Level 111 Carbon Dioxide Level 26.0 Anion Gap 8 Blood Urea Nitrogen 16 Creatinine 2.50 Estimat Glomerular Filtration 36 Rate Random Glucose 96 Calcium Level 8.9 Total Bilirubin 0.5 Aspartate Amino Transf 19 (AST/SGOT) Alanine Aminotransferase 20 (ALT/SGPT) Alkaline Phosphatase 63 Total Protein 7.0 Albumin 3.1 Lipase 136 Urine Color LIGHT-YELLOW Urine Turbidity CLEAR Urine pH 6.5 Urine Specific [place] 1.008 Urine Protein 30 Urine Glucose (UA) NEG Urine Ketones NEG Urine Occult Blood NEG Urine Nitrite NEG Urine Bilirubin NEG Urine Urobilinogen LESS THAN 2.0 Urine Leukocyte Esterase MOD Urine RBC 1 Urine WBC 4 Urine Squamous Epithelial <1 Cells Urine Renal Epithelial Cells <1 Urine Bacteria RARE Microscopic Urinalysis Comment CULT NOT INDICATED Result Diagram: 09/22/16 0045 09/22/16 0045 Imaging Last Impressions Abdomen/Pelvis CT 09/22/16 0214 Signed Impressions: Service Date/Time: Thursday, September 22, 2016 03:49 - CONCLUSION: 1. Status post cholecystectomy. 2. No acute abdominal/pelvic pathology. Francisco Carvalho MD Assessment and Plan Problem List: (1) Abdominal pain ICD Code: R10.9 Status: Acute (2) Acute renal failure superimposed on stage 2 chronic kidney disease ICD Code: N17.9 Status: Acute (3) Hypertension ICD Code: I10 Status: Chronic Assessment and Plan This a 36 year old male patient with past medical history which includes sleep apnea which no longer requires CPAP as he has lost 100 pounds and hypertension. Patient had a cholecystomy approximally 6 weeks ago was recovering well then woke up between 9-10 this AM due to severe abdominal pain in the periumbilical/midepigastric area. The pain was associated with N/V x1. Patient describes the pain as a spasm. Abdominal pain only slightly better after morphine 4 mg x2. Patient has also been having constipation x 1 day. Patient reports abdominal pain feels as though it's, "jumping," and is worse with movement. Patient denies dysuria, penile pain or discharge. Patient also denies chest pain or shortness of breath. GIRMA possibly related to dehydration hold lisinopril at this time NS at 125ml/H recheck labs in AM if renal function remains elevated after patient hydrated may need nephrology consult and renal US Uncontrolled HTN control pain- dilaudid 0.5mg IV with Flexeril 10 mg PO x1 start Norvasc 5 mg daily in AM Hydralazine 10 mg IV as needed Abdominal pain supportive care Dilaudid IV and [place] PO CT reviewed by myself and Dr. Palomares reveals: Status post cholecystectomy. 2. No acute abdominal/pelvic pathology. Lipase 136, LFTs reviewed total bilirubin 0.5 AST 19 ALT 20 alkaline phosphatase is 63 Urinalysis reviewed protein high nitrates negative moderate leukocyte esterase no culture indicated DVT prophylaxis SCDs Discussed with ER provider, nursing and patient Written by Dodie Sarmiento, acting as scribe for Dr. Palomares on 09/22/16 at 05: 08. This note was transcribed by scribe [Dodie Sarmiento]. I, Dr. Houston Palomares personally performed the history, physical exam, and medical decision making; and confirmed the accuracy of the information in the transcribed note. Authenticated by Dr. [place] Palomares on 09/22/16 at 05:08. Physician Certification 2 Midnight Certification Type: Admission for Inpatient Services Order for Inpatient Services The services are ordered in accordance with Medicare regulations or non- Medicare payer requirements, as applicable. In the case of services not specified as inpatient-only, they are appropriately provided as inpatient services in accordance with the 2-midnight benchmark. Estimated LOS (days): 3 days is the estimated time the patient will need to remain in the hospital, assuming treatment plan goals are met and no additional complications. Post-Hospital Plan: Not yet determined Dodie Sarmiento September 22, 2016 04:52 [place] Palomares MD Oct 23, 2016 12:22
[2016-09-22] MEDS ORDERED: HYDROmorphone HCL PF 1 MG/ML VIAL IV PUSH PRN (05:15)
[2016-09-22] MEDS: hydrALAZINE HCL 20 MG/ML VIAL IV PUSH PRN ×3 (05:41→06:46)
[2016-09-22] MEDS ORDERED: DICYCLOMINE HCL 10 MG CAP PO ONE (06:00)
[2016-09-22] MEDS: ONDANSETRON HCL 4 MG/2 ML VIAL IVP PRN (06:06)
[2016-09-22] MEDS: amLODIPine BESYLATE 5 MG TAB PO SCH (08:00)
[2016-09-22] MEDS: SODIUM CHLORIDE 0.9% FLUSH 10 ML FLUSH IV FLUSH SCH ×2 (08:01→20:38)
[2016-09-22] MEDS: HYDROmorphone HCL PF 1 MG/ML VIAL IV PUSH PRN ×4 (09:25→21:54)
[2016-09-23] VITALS (7 sets, daily range): BP systolic 156–191; BP diastolic 87–116; PULSE 46–108; RESP 12–20; TEMP 97.3–98.8; O2SAT 95–100
[2016-09-23] MEDS: DOCUSATE SODIUM 100 MG CAP PO SCH ×2 (04:12→16:30)
[2016-09-23] MEDS: HYDROmorphone HCL PF 1 MG/ML VIAL IV PUSH PRN ×4 (07:32→20:39)
[2016-09-23] MEDS: SODIUM CHLORIDE 0.9% FLUSH 10 ML FLUSH IV FLUSH SCH ×2 (07:32→20:38)
[2016-09-23] MEDS: amLODIPine BESYLATE 5 MG TAB PO SCH ×2 (07:32→20:37)
--- NOTE | 2016-09-23 08:44 | HHI.PR ---
Subjective Remarks Was nauseated yesterday with food. Stil with some abdominal pain. No chest pain or sob, no n/v/d. Last BM was 3 days ago. Passing gas,. No feevr or chills. no cough. Objective Vitals Vital Signs Date Time Temp Pulse Resp B/P Pulse Ox O2 Delivery O2 Flow Rate FiO2 09/23/16 08:00 98.1 55 12 172/103 100 09/23/16 04:00 98.1 50 20 156/87 97 09/23/16 04:00 Room Air 09/23/16 00:00 98.1 63 16 159/97 99 09/23/16 00:00 Room Air 09/22/16 20:00 98.1 75 16 153/83 98 09/22/16 20:00 69 09/22/16 16:00 98.4 88 18 121/87 100 09/22/16 12:00 98.3 79 20 159/80 96 I/O 09/22/16 09/22/16 09/22/16 09/23/16 09/23/16 09/23/16 07:00 15:00 23:00 07:00 15:00 23:00 Intake Total 1940 ml 660 ml Output Total 625 ml 675 ml Balance 1315 ml -15 ml Intake Oral 600 ml 660 ml IV Total 1340 ml Output Urine Total 625 ml 675 ml # Bowel Movements 0 0 Result Diagram: 09/22/16 0045 09/22/16 0045 Imaging Last Impressions Abdomen/Pelvis CT 09/22/16 0214 Signed Impressions: Service Date/Time: Thursday, September 22, 2016 03:49 - CONCLUSION: 1. Status post cholecystectomy. 2. No acute abdominal/pelvic pathology. Francisco Carvalho MD Objective Remarks GENERAL: This is a well-nourished, well-developed patient, appears painful with movement SKIN: No rashes, ecchymoses or lesions. Cool and dry. HEAD: Atraumatic. Normocephalic. No temporal or scalp tenderness. EYES: Extraocular motions intact. No scleral icterus. No injection or drainage. CARDIOVASCULAR: Regular rate and rhythm without murmurs, gallops, or rubs. RESPIRATORY: Clear to auscultation. Breath sounds equal bilaterally. No wheezes , rales, or rhonchi. GASTROINTESTINAL: Abdomen soft, tender to palpation periumbilical and epigastric , nondistended. No guarding. MUSCULOSKELETAL: Extremities without clubbing, cyanosis, or edema. No joint tenderness, effusion, or edema noted. No calf tenderness. Negative Homans sign bilaterally. NEUROLOGICAL: Awake and alert. Motor and sensory grossly within normal limits. Five out of 5 muscle strength in all muscle groups. Normal speech. A/P Problem List: (1) Abdominal pain ICD Code: R10.9 Status: Acute (2) Acute renal failure superimposed on stage 2 chronic kidney disease ICD Code: N17.9 Status: Acute (3) Hypertension ICD Code: I10 Status: Chronic Assessment and Plan This a 36 year old male patient with past medical history which includes sleep apnea which no longer requires CPAP as he has lost 100 pounds and hypertension. Patient had a cholecystomy approximally 6 weeks ago was recovering well then woke up between 9-10 this AM due to severe abdominal pain in the periumbilical/midepigastric area. The pain was associated with N/V x1. Patient describes the pain as a spasm. Abdominal pain only slightly better after morphine 4 mg x2. Patient has also been having constipation x 1 day. Patient reports abdominal pain feels as though it's, "jumping," and is worse with movement. Patient denies dysuria, penile pain or discharge. Patient also denies chest pain or shortness of breath. GIRMA possibly related to dehydration hold lisinopril at this time NS at 125ml/H recheck labs in AM if renal function remains elevated after patient hydrated may need nephrology consult and renal US Uncontrolled HTN control pain- dilaudid 0.5mg IV with Flexeril 10 mg PO x1 start Norvasc 5 mg daily in AM Hydralazine 10 mg IV as needed Abdominal pain supportive care Dilaudid IV and [place] PO CT reviewed by myself and Dr. Palomares reveals: Status post cholecystectomy. 2. No acute abdominal/pelvic pathology. Lipase 136, LFTs reviewed total bilirubin 0.5 AST 19 ALT 20 alkaline phosphatase is 63 Urinalysis reviewed protein high nitrates negative moderate leukocyte esterase no culture indicated DVT prophylaxis SCDs Discussed with patient. nurse Sandrine Eckert MD September 23, 2016 08:44
[2016-09-23 09:33] LABS: AUTOMATED NEUTROPHIL # 4.9 TH/MM3 (1.8-7.7); BASOPHIL # 0.1 TH/MM3 (0-0.2); BASOPHIL % 0.7 % (0.0-2.0); EOSINOPHIL # 0.1 TH/MM3 (0-0.4); EOSINOPHIL % 1.6 % (0.0-4.0); HEMATOCRIT 40.6 % (39.0-51.0); HEMO FLAGS DIFF FINAL; LYMPH % 30.8 % (9.0-44.0); LYMPHOCYTE # 2.6 TH/MM3 (1.0-4.8); MEAN CELL VOLUME 91.5 FL (80.0-100.0); MEAN CORPUSCULAR HEMOGLOBIN 29.8 PG (27.0-34.0); MEAN CORPUSCULAR HGB CONC 32.5 % (32.0-36.0); MONO % 8.4 % (0.0-8.0); NEUT % 58.5 % (16.0-70.0); PLATELET COUNT 199 TH/MM3 (150-450); RED BLOOD COUNT 4.44 MIL/MM3 (4.50-5.90); RED CELL DISTRIBUTION WIDTH 14.5 % (11.6-17.2); WHITE BLOOD COUNT 8.4 TH/MM3 (4.0-11.0)
[2016-09-23 10:05] LABS: BICARBONATE 29.8 MEQ/L (21.0-32.0); POTASSIUM 3.7 MEQ/L (3.5-5.1)
[2016-09-23] MEDS: hydrALAZINE HCL 20 MG/ML VIAL IV PUSH PRN ×2 (14:28→16:55)
[2016-09-23] MEDS: ONDANSETRON HCL 4 MG/2 ML VIAL IVP PRN (17:29)
[2016-09-23] MEDS: hydrALAZINE HCL 10 MG TAB PO SCH (21:57)
[2016-09-24] VITALS (9 sets, daily range): BP systolic 155–182; BP diastolic 91–109; PULSE 59–74; RESP 16–20; TEMP 97.8–98.8; O2SAT 95–100
[2016-09-24] MEDS: DOCUSATE SODIUM 100 MG CAP PO SCH ×2 (03:37→16:48)
[2016-09-24] MEDS: hydrALAZINE HCL 10 MG TAB PO SCH (05:08)
[2016-09-24] MEDS: HYDROmorphone HCL PF 1 MG/ML VIAL IV PUSH PRN ×3 (05:26→20:54)
[2016-09-24 08:41] LABS: AUTOMATED NEUTROPHIL # 5.9 TH/MM3 (1.8-7.7); BASOPHIL % 0.4 % (0.0-2.0); EOSINOPHIL # 0.1 TH/MM3 (0-0.4); EOSINOPHIL % 1.6 % (0.0-4.0); HEMATOCRIT 42.6 % (39.0-51.0); HEMO FLAGS DIFF FINAL; LYMPH % 26.3 % (9.0-44.0); LYMPHOCYTE # 2.4 TH/MM3 (1.0-4.8); MEAN CELL VOLUME 89.9 FL (80.0-100.0); MEAN CORPUSCULAR HEMOGLOBIN 30.3 PG (27.0-34.0); MEAN CORPUSCULAR HGB CONC 33.7 % (32.0-36.0); MONO % 7.8 % (0.0-8.0); NEUT % 63.9 % (16.0-70.0); PLATELET COUNT 247 TH/MM3 (150-450); RED BLOOD COUNT 4.74 MIL/MM3 (4.50-5.90); RED CELL DISTRIBUTION WIDTH 14.2 % (11.6-17.2); WHITE BLOOD COUNT 9.2 TH/MM3 (4.0-11.0)
[2016-09-24 09:03] LABS: POTASSIUM 3.6 MEQ/L (3.5-5.1)
[2016-09-24] MEDS: SODIUM CHLORIDE 0.9% FLUSH 10 ML FLUSH IV FLUSH SCH ×2 (09:42→20:54)
[2016-09-24] MEDS: amLODIPine BESYLATE 5 MG TAB PO SCH ×2 (09:42→20:55)
--- NOTE | 2016-09-24 10:28 | HHI.PR ---
Subjective Remarks Says he feel improved, pain is controlled by meds. Feels tired. He complaints of multiple painful lesions on his feet. No n/v/d/c. Denies fever or chills. Objective Vitals Vital Signs Date Time Temp Pulse Resp B/P Pulse Ox O2 Delivery O2 Flow Rate FiO2 09/24/16 08:00 98.0 59 18 182/105 97 09/24/16 04:00 98.8 74 16 172/100 98 09/24/16 01:00 69 172/91 98 09/24/16 00:00 98.7 64 16 155/101 98 09/23/16 20:50 69 09/23/16 20:00 Room Air 09/23/16 20:00 98.8 66 16 175/101 100 09/23/16 16:00 97.5 60 12 183/104 99 09/23/16 12:00 97.3 63 12 191/116 100 I/O 09/23/16 09/23/16 09/23/16 09/24/16 09/24/16 09/24/16 07:00 15:00 23:00 07:00 15:00 23:00 Intake Total 720 ml Balance 720 ml Intake Oral 720 ml # Voids 3 # Bowel Movements 1 Result Diagram: 09/24/1671609/24/16716 Imaging Last Impressions Abdomen/Pelvis CT 09/22/164 Signed Impressions: Service Date/Time: Thursday, September 22, 2016 03:49 - CONCLUSION: 1. Status post cholecystectomy. 2. No acute abdominal/pelvic pathology. Francisco Carvalho MD Objective Remarks GENERAL: This is a well-nourished, well-developed patient, appears painful with movement SKIN: No rashes, ecchymoses or lesions. Cool and dry. HEAD: Atraumatic. Normocephalic. No temporal or scalp tenderness. EYES: Extraocular motions intact. No scleral icterus. No injection or drainage. CARDIOVASCULAR: Regular rate and rhythm without murmurs, gallops, or rubs. RESPIRATORY: Clear to auscultation. Breath sounds equal bilaterally. No wheezes , rales, or rhonchi. GASTROINTESTINAL: Abdomen soft, tender to palpation periumbilical and epigastric , nondistended. No guarding. MUSCULOSKELETAL: Extremities without clubbing, cyanosis, or edema. No joint tenderness, effusion, or edema noted. No calf tenderness. Negative Homans sign bilaterally. NEUROLOGICAL: Awake and alert. Motor and sensory grossly within normal limits. Five out of 5 muscle strength in all muscle groups. Normal speech. A/P Problem List: (1) Abdominal pain ICD Code: R10.9 Status: Acute (2) Acute renal failure superimposed on stage 2 chronic kidney disease ICD Code: N17.9 Status: Acute (3) Hypertension ICD Code: I10 Status: Chronic Assessment and Plan This a 36 year old male patient with past medical history which includes sleep apnea which no longer requires CPAP as he has lost 100 pounds and hypertension. Patient had a cholecystomy approximally 6 weeks ago was recovering well then woke up between 9-10 this AM due to severe abdominal pain in the periumbilical/midepigastric area. The pain was associated with N/V x1. Patient describes the pain as a spasm. Abdominal pain only slightly better after morphine 4 mg x2. Patient has also been having constipation x 1 day. Patient reports abdominal pain feels as though it's, "jumping," and is worse with movement. Patient denies dysuria, penile pain or discharge. Patient also denies chest pain or shortness of breath. GIRMA possibly related to dehydration. Slowly improving with IVF hold lisinopril at this time NS at 125ml/H recheck labs in AM, monitor kidney function Consult nephrology. Will order kidney US. Encourage PO hydration. UA no signs of UTI. Uncontrolled HTN pain control wir po and IV meds per pain scale. Add dilaudid 1 mg IV for breakthrough pain. Continue Flexeril 10 mg PO x1. Monitor VS. Increase Norvasc to 5 mg bid . Increased hydralazine to 25 mg po Q8hrs Hydralazine 10 mg IV as needed Abdominal pain. Resolved. supportive care Dilaudid IV and [place] PO CT reviewed: Status post cholecystectomy. No acute abdominal/pelvic pathology. Lipase 136, LFTs reviewed total bilirubin 0.5 AST 19 ALT 20 alkaline phosphatase is 63 Urinalysis reviewed protein high nitrates negative moderate leukocyte esterase no culture indicated Multiple painful lesions on his feet. Will consult podiatry for evaluation. DVT prophylaxis SCDs Discussed with patient. nurse DC plan : When improved and cleared by consultants Sandrine Eckert MD September 24, 2016 10:28
--- NOTE | 2016-09-24 11:47 | RADRPT ---
EXAM DATE/TIME: 09/24/2016 11:12 [facility] COMPARISON: No previous studies available for comparison. INDICATIONS : Increased Creatinine. MEDICAL HISTORY : Hypercholesterolemia. Hypertension. Ulcers. Asthma. Sleep apnea. SURGICAL HISTORY : Cholecystectomy. Left ganglion cyst removal. ENCOUNTER: Subsequent ACUITY: 1 day PAIN SCORE: 0/10 LOCATION: Bilateral flank MEASUREMENTS: RIGHT KIDNEY: 11.7 x 5.8 x 5.4 cm LEFT KIDNEY: 11.1 x 5.2 x 6.5 cm FINDINGS: RIGHT KIDNEY: Renal cortex is normal in thickness and echotexture. No hydronephrosis, stone, or mass. LEFT KIDNEY: Renal cortex is normal in thickness and echotexture. No hydronephrosis, stone, or mass. BLADDER: Within normal limits given the degree of distension. CONCLUSION: Normal renal sonogram. Kaiden Dubose MD on September 24, 2016 at 11:44 Board Certified Radiologist. This report was verified electronically.
[2016-09-24] MEDS: LACTIC ACID (AMMONIUM LACTATE) 12% LOTION 225 GM BTL TOPICAL SCH ×2 (14:00→20:55)
[2016-09-24] MEDS: hydrALAZINE HCL 25 MG TAB PO SCH ×2 (14:11→20:55)
--- NOTE | 2016-09-24 14:29 | MB ---
cc: [facility] DPM DATE OF CONSULTATION: 09/24/2016. REASON FOR CONSULTATION: Painful lesions bilateral feet. HISTORY OF PRESENT ILLNESS: This is a pleasant 36-year-old male who apparently is having abdominal pain. He is status post cholecystectomy. The patient stands on his feet 12 to 14 hours a day for working and he is having pain of his feet. He admits that he has calluses he tries to maintain and he has not been successful. PAST MEDICAL HISTORY: 1. Hypertension. 2. Sleep apnea. PAST SURGICAL HISTORY: 1. Cholecystectomy. 2. Ganglion cyst removed from wrist. OUTPATIENT MEDICATIONS: 1. Lisinopril. 2. [place]. INPATIENT MEDICATIONS: Reviewed. No topical creams have been prescribed. ALLERGIES: COCONUT CAUSES A SEVERE BREAKOUT. SOCIAL HISTORY: Smokes A half a pack a day, and start at age 10. Denies alcohol. Cocaine last used 2016. Marijuana in the past. PHYSICAL EXAMINATION: VITAL SIGNS: Temperature 98.2 pulse rate 63, respiratory rate 18, blood pressure 161/94. GENERAL: This is an alert and oriented male seen bedside exhibiting nonlabored respirations. EXTREMITIES: Bilateral lower extremities examined. Pedal pulses palpable. Sensation intact. There is noted to be thick nails and evidence of likely onychomycosis. Also there is noted to be severe thickening of the plantar skin with evidence of multiple calluses significant at that level of the forefoot. There is no fluctuance upon pain to these areas. They appear to be consistent with keratoma versus keratoma type lesions due to increased pressure. Sensation appears to be fully intact. Excellent muscle strength noted. ASSESSMENT: Painful soft tissue masses likely porokeratomas. PLAN: The plan is to apply Lac-Hydrin [id number] times a day. The patient will followup outpatient for debridement of these lesions, valuation of shoes and possible arch supports. Thank you for this consultation. I will follow this patient outpatient. MARQUIS Ontiveros/HARDEEP /2:02 PM /2:22 PM
[2016-09-25] VITALS (9 sets, daily range): BP systolic 150–186; BP diastolic 89–111; PULSE 52–79; RESP 20; TEMP 93.4–98.4; O2SAT 94–98
[2016-09-25] MEDS: HYDROmorphone HCL PF 1 MG/ML VIAL IV PUSH PRN ×4 (02:10→20:57)
[2016-09-25] MEDS: DOCUSATE SODIUM 100 MG CAP PO SCH ×2 (05:20→16:30)
[2016-09-25] MEDS: ACETAMINOPHEN/HYDROcodone 325 MG/7.5 MG TAB PO PRN ×2 (05:20→09:43)
[2016-09-25] MEDS: hydrALAZINE HCL 25 MG TAB PO SCH ×3 (05:20→20:58)
[2016-09-25 07:26] LABS: BICARBONATE 29.8 MEQ/L (21.0-32.0); POTASSIUM 3.7 MEQ/L (3.5-5.1)
[2016-09-25] MEDS: amLODIPine BESYLATE 5 MG TAB PO SCH ×2 (09:43→20:58)
[2016-09-25] MEDS: SODIUM CHLORIDE 0.9% FLUSH 10 ML FLUSH IV FLUSH SCH ×2 (09:43→20:56)
[2016-09-25] MEDS: LACTIC ACID (AMMONIUM LACTATE) 12% LOTION 225 GM BTL TOPICAL SCH ×2 (09:44→20:58)
[2016-09-25] MEDS ORDERED: ERGOCALCIFEROL (VIT D2) 50,000 UNIT CAP PO SCH ×2 (10:00→12:00)
[2016-09-25 10:06] LABS: HEPATITIS B SURFACE ANTIBODY GREATER THAN 150 mIU/mL
--- NOTE | 2016-09-25 10:16 | PD.CONS ---
HPI Service Nephrology Consult Requested By Dr. Eckert Reason for Consult GIRMA Primary Care Physician No Primary Care Physician History of Present Illness The patient is a 36 yo AA male who presented to this facility via EMS with complaints of abdominal pain & NV x1 episode on 09/22. He underwent a cholecystectomy just 6 weeks prior that he said was uncomplicated. Denies any NSAID use at home. Takes Lisinopril for BP for which he says he was started on back in 2007. He admittedly has not been compliant with his healthcare d/t lack of insurance and says often times he does not take his BP medications unless he has a headache. Other PMHx negative besides KEON which he says resolved after 100lb weight loss. Multiple family members with HTN and DM. No known renal disease in family. Presenting SCr 2.50 that has improved daily to 1.87 at consult. Previous labs reveal elevated SCr since 2011 with SCr at that time at 1.39 and 1.Mar. Unaware of these findings. Today feeling better. Is anxious to go home as he is concerned about his job. No longer with abd pain. (Dee Dee Mg) Review of Systems Gastrointestinal: COMPLAINS OF: Abdominal pain (reoslved since admission), Nausea, Vomiting (Dee Dee Mg) Past Family Social History Allergies: Coded Allergies: Coconut (Verified Allergy, Severe, BREAK OUT, 07/12/16) Past Medical History HTN dx in 2007 KEON resolved after 100lb weight loss Hx of cocaine abuse Long-standing tobacco use Noncompliance with medical care d/t lack of insurance Past Surgical History Ganglion cyst removal Cholecystectomy Reported Medications Reported Meds & Active Scripts Active Lisinopril 20 Mg Tab 20 Mg PO DAILY Reported [place] (Hydrocodone-Acetaminophen) 7.5-325 mg Tab 1-2 Tab PO Q4H PRN Active Ordered Medications Current Medications Medications (Trade) Dose Ordered Sig/Marnie Route Start Time Stop Time Status Last Admin ([place] 7.5-325 Mg) 1 tab Q4H PRN PO 09/22/16 04:30 09/25/16 09:43 (NS Flush) 2 ml UNSCH PRN IV FLUSH 09/22/16 04:30 (NS Flush) 2 ml BID IV FLUSH 09/22/16 09:00 09/25/16 09:43 (Tylenol) 650 mg Q4H PRN PO 09/22/16 04:30 (Zofran Inj) 4 mg Q6H PRN IVP 09/22/16 04:30 09/23/16 17:29 (Colace) 100 mg Q12H PO 09/22/16 04:30 09/25/16 05:20 (Narcan Inj) 0.4 mg UNSCH PRN IV 09/22/16 04:30 (Apresoline Inj) 10 mg Q30M PRN IV PUSH 09/22/16 04:45 09/23/16 16:55 (Dilaudid Pf Inj) 1 mg Q4H PRN IV PUSH 09/22/16 09:15 09/25/16 02:10 (Norvasc) 5 mg BID PO 09/23/16 21:00 09/25/16 09:43 (Apresoline) 25 mg Q8HR PO 09/24/16 14:00 09/25/16 05:20 (Lac-Hydrin 12% Lotion) 1 applic BID TOPICAL 09/24/16 14:00 09/25/16 09:44 (Drisdol) 50,000 units Q7D PO 09/25/16 10:00 Family History Multiple family members with HTN and DM Social History 1/2 ppd tobacco user since age 10 No EtOH use Denies any current illict drug use, but states he was previously a heavy cocaine abuse. Last used May 2016. Previous marijuana use (Dee Dee Mg) Physical Exam Vital Signs Vital Signs Date Time Temp Pulse Resp B/P Pulse Ox O2 Delivery O2 Flow Rate FiO2 09/25/16 08:00 93.4 65 20 166/95 95 09/25/16 04:00 98.0 63 20 179/111 97 09/25/16 02:17 159/100 09/25/16 00:00 98.1 66 20 186/97 94 09/24/16 20:00 98.2 65 20 177/94 95 09/24/16 20:00 Room Air 09/24/16 19:52 62 09/24/16 16:00 97.8 61 18 166/109 97 09/24/16 12:00 98.2 63 18 161/94 100 Physical Exam GENERAL: NAD SKIN: Warm and dry. HEAD: Atraumatic. Normocephalic. EYES: Pupils equal and round. No scleral icterus. No injection or drainage. ENT: No nasal bleeding or discharge. Mucous membranes pink and moist. NECK: Trachea midline. No JVD. CARDIOVASCULAR: Regular rate and rhythm. RESPIRATORY: No accessory muscle use. Clear to auscultation. Breath sounds equal bilaterally. GASTROINTESTINAL: Abdomen soft, non-tender, nondistended. Hepatic and splenic margins not palpable. MUSCULOSKELETAL: Extremities without clubbing, cyanosis, or edema. No obvious deformities. NEUROLOGICAL: Awake and alert. No obvious cranial nerve deficits. Normal speech. PSYCHIATRIC: Appropriate mood and affect; insight and judgment normal. Laboratory Laboratory Tests Test 09/25/16 06:29 Sodium Level 138 Potassium Level 3.7 Chloride Level 102 Carbon Dioxide Level 29.8 Anion Gap 6 Blood Urea Nitrogen 15 Creatinine 1.87 Estimat Glomerular Filtration 50 Rate Random Glucose 85 Calcium Level 9.5 Phosphorus Level 4.1 Albumin 3.4 25-Hydroxy Vitamin D Total 5.6 Parathyroid Hormone (Intact) 18.1 Complement C3 147 Complement C4 30 (Dee Dee Mg) Result Diagram: 09/24/16 0717 09/25/16 0629 Imaging Last Impressions Renal Ultrasound 09/24/16 0000 Signed Impressions: Service Date/Time: Saturday, September 24, 2016 11:12 - CONCLUSION: Normal renal sonogram. Kaiden Dubose MD Abdomen/Pelvis CT 09/22/16 0214 Signed Impressions: Service Date/Time: Thursday, September 22, 2016 03:49 - CONCLUSION: 1. Status post cholecystectomy. 2. No acute abdominal/pelvic pathology. Francisco Carvalho MD (Dee Dee Mg) Assessment and Plan Problem List: (1) Acute on chronic renal insufficiency Plan: Review of labs dating back to 2011 shows an elevated SCr with baseline of 1.3-1.4. SCr has improved since admission indicating some degree of intravascular volume depletion couple by ACEi use He has a long hx of HTN dx at an early age that has not been well controlled. Likely has some underlying CKD in relation to this. Will check renin/aldosterone levels as well as 24h urine collection for metanephrines and catecholamines given his accelerated hypertension. Renal US reviewed. SAROJ & Hepatitis panel pending. Complements normal. Medications should be adjusted for the patient's renal insufficiency. Avoid nephrotoxic agents such as iodinated contrast dyes and NSAIDs. Avoid gadolinium when eGFR <30. (2) Hypertension Plan: BP still not well controlled. Continue on Amlodipine 10mg QD. Increase Hydralazine to 50mg q8h. HR relatively low so will avoid BB at the present. Screen for secondary causes of hypertension as above. (3) Tobacco abuse Plan: Counselled about cessation. Mentions he is interested in nicotine patches as outpatient---will defer to primary. (4) Vitamin D deficiency Plan: Start on Ergocalciferol 50,000U once weekly. (Dee Dee Mg) Assessment and Plan The exam, history, and the medical decision-making described in the above note were completed with the assistance of the PA-C. I reviewed and agree with the findings presented. (Fili Gaitan MD) Dee Dee Mg September 25, 2016 10:16 Fili Gaitan MD Nov 14, 2016 13:27
[2016-09-25 12:15] LABS: ANA SCREEN NEG (NEG)
--- NOTE | 2016-09-25 17:17 | HHI.PR ---
Subjective Remarks Says she feels tired. Denies vomiting. He is feeling nauseated. No diarrhea. Pain in his feet. No fever or chills. Denies chest pain or sob. Says he has a good urine OP Objective Vitals Vital Signs Date Time Temp Pulse Resp B/P Pulse Ox O2 Delivery O2 Flow Rate FiO2 09/25/16 12:41 18 09/25/16 10:43 18 09/25/16 08:00 52 09/25/16 08:00 93.4 65 20 166/95 95 09/25/16 08:00 Room Air 09/25/16 04:00 98.0 63 20 179/111 97 09/25/16 02:17 159/100 09/25/16 00:00 98.1 66 20 186/97 94 09/24/16 20:00 98.2 65 20 177/94 95 09/24/16 20:00 Room Air 09/24/16 19:52 62 I/O 09/24/16 09/24/16 09/24/16 09/25/16 09/25/16 09/25/16 07:00 15:00 23:00 07:00 15:00 23:00 Intake Total 1800 ml 320 ml 240 ml Output Total 450 ml 350 ml 300 ml Balance 1800 ml -130 ml -350 ml -60 ml Intake Oral 1800 ml 320 ml 240 ml Output Urine Total 450 ml 350 ml 300 ml # Voids 9 # Bowel Movements 2 0 0 Result Diagram: 09/24/16 0717 09/25/16 0629 Imaging Last Impressions Renal Ultrasound 09/24/16 0000 Signed Impressions: Service Date/Time: Saturday, September 24, 2016 11:12 - CONCLUSION: Normal renal sonogram. Kaiden Dubose MD Abdomen/Pelvis CT 09/22/16 0214 Signed Impressions: Service Date/Time: Thursday, September 22, 2016 03:49 - CONCLUSION: 1. Status post cholecystectomy. 2. No acute abdominal/pelvic pathology. Francisco Carvalho MD Objective Remarks GENERAL: This is a well-nourished, well-developed patient, appears painful with movement SKIN: No rashes, ecchymoses or lesions. Cool and dry. HEAD: Atraumatic. Normocephalic. No temporal or scalp tenderness. EYES: Extraocular motions intact. No scleral icterus. No injection or drainage. CARDIOVASCULAR: Regular rate and rhythm without murmurs, gallops, or rubs. RESPIRATORY: Clear to auscultation. Breath sounds equal bilaterally. No wheezes , rales, or rhonchi. GASTROINTESTINAL: Abdomen soft, tender to palpation periumbilical and epigastric , nondistended. No guarding. MUSCULOSKELETAL: Extremities without clubbing, cyanosis, or edema. No joint tenderness, effusion, or edema noted. No calf tenderness. Negative Homans sign bilaterally. NEUROLOGICAL: Awake and alert. Motor and sensory grossly within normal limits. Five out of 5 muscle strength in all muscle groups. Normal speech. A/P Problem List: (1) Abdominal pain ICD Code: R10.9 Status: Acute (2) Acute renal failure superimposed on stage 2 chronic kidney disease ICD Code: N17.9 Status: Acute (3) Hypertension ICD Code: I10 Status: Chronic (4) Porokeratosis ICD Code: Q82.8 Status: Acute Assessment and Plan This a 36 year old male patient with past medical history which includes sleep apnea which no longer requires CPAP as he has lost 100 pounds and hypertension. Patient had a cholecystomy approximally 6 weeks ago was recovering well then woke up between 9-10 this AM due to severe abdominal pain in the periumbilical/midepigastric area. The pain was associated with N/V x1. Patient describes the pain as a spasm. Abdominal pain only slightly better after morphine 4 mg x2. Patient has also been having constipation x 1 day. Patient reports abdominal pain feels as though it's, "jumping," and is worse with movement. Patient denies dysuria, penile pain or discharge. Patient also denies chest pain or shortness of breath. GIRMA possibly related to dehydration. Slowly improving with IVF hold lisinopril at this time NS at 125ml/H. Has a good UOP. recheck labs in AM, monitor kidney function Consult nephrology. Kidney US reviewed, normal. Encourage PO hydration. UA no signs of UTI. Vit D deficiency, severe. Replaced with ergocalciferol. Uncontrolled HTN pain control wir po and IV meds per pain scale. Add dilaudid 1 mg IV for breakthrough pain. Continue Flexeril 10 mg PO x1. Monitor VS. Increase Norvasc to 5 mg bid . Increased hydralazine to 50 mg po Q8hrs as BP still not controlled. Hydralazine 10 mg IV as needed Abdominal pain. Resolved. supportive care Dilaudid IV and [place] PO CT reviewed: Status post cholecystectomy. No acute abdominal/pelvic pathology. Lipase 136, LFTs reviewed total bilirubin 0.5 AST 19 ALT 20 alkaline phosphatase is 63 Urinalysis reviewed protein high nitrates negative moderate leukocyte esterase no culture indicated Multiple painful lesions on his feet. Will consult podiatry for evaluation. Patient with porokeratosis, appreciate podiatry recommendations. Patient to follow up as OP with podiatry DVT prophylaxis SCDs Discussed with patient. nurse DC plan : When improved and cleared by consultants, BP uncontrolled , also kidney function slowly improving Sandrine Eckert MD September 25, 2016 17:17
[2016-09-26] VITALS (9 sets, daily range): BP systolic 133–189; BP diastolic 79–100; PULSE 68–92; RESP 16–20; TEMP 97.3–99.1; O2SAT 95–99
[2016-09-26] MEDS: HYDROmorphone HCL PF 1 MG/ML VIAL IV PUSH PRN ×4 (01:12→22:20)
[2016-09-26] MEDS: DOCUSATE SODIUM 100 MG CAP PO SCH ×2 (04:28→18:46)
[2016-09-26] MEDS: hydrALAZINE HCL 25 MG TAB PO SCH ×3 (06:16→22:19)
[2016-09-26] MEDS: SODIUM CHLORIDE 0.9% FLUSH 10 ML FLUSH IV FLUSH PRN (06:17)
[2016-09-26 07:39] LABS: AUTOMATED NEUTROPHIL # 5.2 TH/MM3 (1.8-7.7); BASOPHIL # 0.1 TH/MM3 (0-0.2); BASOPHIL % 0.8 % (0.0-2.0); EOSINOPHIL # 0.1 TH/MM3 (0-0.4); EOSINOPHIL % 1.1 % (0.0-4.0); HEMATOCRIT 46.7 % (39.0-51.0); HEMO FLAGS DIFF FINAL; LYMPH % 24.2 % (9.0-44.0); MEAN CELL VOLUME 90.5 FL (80.0-100.0); MEAN CORPUSCULAR HEMOGLOBIN 30.1 PG (27.0-34.0); MEAN CORPUSCULAR HGB CONC 33.3 % (32.0-36.0); MONO % 9.8 % (0.0-8.0); NEUT % 64.1 % (16.0-70.0); PLATELET COUNT 241 TH/MM3 (150-450); RED BLOOD COUNT 5.16 MIL/MM3 (4.50-5.90); RED CELL DISTRIBUTION WIDTH 13.8 % (11.6-17.2); WHITE BLOOD COUNT 8.1 TH/MM3 (4.0-11.0)
[2016-09-26 08:04] LABS: BICARBONATE 29.1 MEQ/L (21.0-32.0); POTASSIUM 4.1 MEQ/L (3.5-5.1)
[2016-09-26] MEDS: amLODIPine BESYLATE 5 MG TAB PO SCH ×2 (08:40→22:19)
[2016-09-26] MEDS: LACTIC ACID (AMMONIUM LACTATE) 12% LOTION 225 GM BTL TOPICAL SCH ×2 (08:43→22:20)
[2016-09-26] MEDS: SODIUM CHLORIDE 0.9% FLUSH 10 ML FLUSH IV FLUSH SCH ×2 (09:00→22:19)
[2016-09-26] MEDS: ACETAMINOPHEN/HYDROcodone 325 MG/7.5 MG TAB PO PRN (12:23)
--- NOTE | 2016-09-26 16:50 | HHI.NPPN ---
Subjective History of Present Illness The patient is a 36 yo AA male who presented to this facility via EMS with complaints of abdominal pain & NV x1 episode on 09/22. He underwent a cholecystectomy just 6 weeks prior that he said was uncomplicated. Denies any NSAID use at home. Takes Lisinopril for BP for which he says he was started on back in 2007. He admittedly has not been compliant with his healthcare d/t lack of insurance and says often times he does not take his BP medications unless he has a headache. Other PMHx negative besides KEON which he says resolved after 100lb weight loss. Multiple family members with HTN and DM. No known renal disease in family. Presenting SCr 2.50 that has improved daily to 1.87 at consult. Previous labs reveal elevated SCr since 2011 with SCr at that time at 1.39 and 1.Mar. Interval History Patient indicated that he was anxious to go almost however apparently is still requesting parental narcotics. Objective Data Data 09/25/16 09/26/16 19:00 07:00 Intake Total 960 ml 480 ml Output Total 300 ml Balance 660 ml 480 ml Intake Oral 960 ml 480 ml Output Urine Total 300 ml # Voids 5 0 # Bowel Movements 1 0 Vital Signs Date Time Temp Pulse Resp B/P Pulse Ox O2 Delivery O2 Flow Rate FiO2 09/26/16 16:00 98.0 89 18 164/100 99 09/26/16 12:00 98.6 68 18 141/94 97 09/26/16 08:00 97.3 77 18 189/94 98 09/26/16 04:00 98.2 85 20 161/98 98 09/26/16 00:00 Room Air 09/26/16 00:00 97.5 86 18 154/79 99 09/25/16 20:33 64 09/25/16 20:00 Room Air 09/25/16 20:00 98.4 78 20 151/95 98 09/25/16 17:38 18 -: 09/26/16 0708 09/26/16 0708 Medication Review Current Medications Morphine Sulfate (Morphine Inj) 4 mg ONCE ONCE IV PUSH Last administered on t 01:30; Start 09/22/16 at 01:00; Stop 09/22/16 at 01:01; Status DC Ondansetron HCl 4 mg 4 mg ONCE ONCE IVP Last administered on 09/22/16 01:31; Start 09/22/16 at 01:00; Stop 09/22/16 at 01:01; Status DC Sodium Chloride (NS 1000 ml Inj) 1,000 ml @ 125 mls/hr Q8H IV Last administered on 09/22/16 01:30; Start 09/22/16 at 00:58; Stop 09/22/16 at 04:28 ; Status DC Sodium Chloride (NS Flush) 2 ml UNSCH PRN IV FLUSH FLUSH AFTER USING IV ACCESS ; Start 09/22/16 at 01:00; Stop 09/22/16 at 04:31; Status DC Diatrizoate Meglum/ Diatrizoate Sod ( Gastroroopa Liq) 18 ml STK-MED ONCE .ROUTE Last administered on 09/22/16 02:34; Start 09/22/16 at 02:30; Stop 04/29 at 02:31; Status DC Morphine Sulfate (Morphine Inj) 4 mg ONCE ONCE IV Last administered on 04:15; Start 09/22/16 at 02:45; Stop 09/22/16 at 02:46; Status DC Labetalol HCl (Trandate Inj) 5 mg ONCE ONCE IV PUSH ; Start 09/22/16 at 04:15; Stop 09/22/16 at 04:16; Status DC Acetaminophen/ Hydrocodone Bitart 1 tab 1 tab Q4H PRN PO PAIN 3-6 Last administered on 09/26/16 12:23; Start 09/22/16 at 04:30 Sodium Chloride (NS 1000 ml Inj) 1,000 ml @ 125 mls/hr Q8H IV Last administered on 09/22/16 04:46; Start 09/22/16 at 04:24; Stop 09/22/16 at 12:23 ; Status DC Sodium Chloride (NS Flush) 2 ml UNSCH PRN IV FLUSH FLUSH AFTER USING IV ACCESS Last administered on 09/26/16 06:17; Start 09/22/16 at 04:30 Sodium Chloride (NS Flush) 2 ml BID IV FLUSH Last administered on 09/25/16 20: 56; Start 09/22/16 at 09:00 Acetaminophen (Tylenol) 650 mg Q4H PRN PO TEMP > 100.4; Start 09/22/16 at 04:30 Ondansetron HCl (Zofran Inj) 4 mg Q6H PRN IVP NAUSEA OR VOMITING Last administered on 09/23/16 17:29; Start 09/22/16 at 04:30 Docusate Sodium (Colace) 100 mg Q12H PO Last administered on 09/25/16 05:20; Start 09/22/16 at 04:30 Naloxone HCl (Narcan Inj) 0.4 mg UNSCH PRN IV SEE LABEL COMMENTS; Start at 04:30 Amlodipine Besylate (Norvasc) 5 mg DAILY PO Last administered on 09/23/16 07: 32; Start 09/22/16 at 09:00; Stop 09/23/16 at 17:04; Status DC Hydromorphone HCl (Dilaudid Pf Inj) 0.5 mg ONCE ONCE IV PUSH Last administered on 09/22/16 05:40; Start 09/22/16 at 04:45; Stop 09/22/16 at 04:49 ; Status DC Cyclobenzaprine HCl (Flexeril) 10 mg ONCE ONCE PO Last administered on 05:40; Start 09/22/16 at 04:45; Stop 09/22/16 at 04:49; Status DC Hydralazine HCl (Apresoline Inj) 10 mg Q30M PRN IV PUSH SBP>180, DBP>95 Last administered on 09/23/16 16:55; Start 09/22/16 at 04:45 Hydromorphone HCl (Dilaudid Pf Inj) 0.5 mg Q4H PRN IV PUSH pain 7-10; Start 04/29 at 05:15; Stop 09/22/16 at 05:57; Status DC Dicyclomine HCl (Bentyl) 20 mg ONCE ONCE PO Last administered on 09/22/16 06: 19; Start 09/22/16 at 06:00; Stop 09/22/16 at 06:01; Status DC Hydromorphone HCl (Dilaudid Pf Inj) 1 mg Q4H PRN IV PUSH pain 7-10 Last administered on 09/26/16 15:50; Start 09/22/16 at 09:15 Amlodipine Besylate (Norvasc) 5 mg BID PO Last administered on 09/26/16 08:40 ; Start 09/23/16 at 21:00 Hydralazine HCl (Apresoline) 10 mg Q8HR PO Last administered on 09/24/16 05:08 ; Start 09/23/16 at 22:00; Stop 09/24/16 at 10:35; Status DC Hydralazine HCl (Apresoline) 25 mg Q8HR PO Last administered on 09/25/16 05:20 ; Start 09/24/16 at 14:00; Stop 09/25/16 at 10:18; Status DC Lactic Acid (Lac-Hydrin 12% Lotion) 1 applic BID TOPICAL Last administered on 08:43; Start 09/24/16 at 14:00 Ergocalciferol (Drisdol) 50,000 units Q7D PO Last administered on 09/25/16 12: 18; Start 09/25/16 at 10:00 Hydralazine HCl (Apresoline) 50 mg Q8HR PO Last administered on 09/26/16 12:23 ; Start 09/25/16 at 14:00 Ergocalciferol (Drisdol) 50,000 units Q7D PO ; Start 09/25/16 at 12:00; Stop at 12:00; Status DC Physical Exam General Appearance: Well Developed, Well Nourished, Comfortable Neck Neck Exam: Trachea Midline Pulmonary Resp Exam: Clear Bilaterally, Breath Sounds Equal Cardiology CV Exam: Regular, Normal Sinus Rhythm Gastrointestinal/Abdomen GI Exam: Soft, Non-Tender Assessment/Plan Discussed Condition With: Patient Problem List: (1) Acute on chronic renal insufficiency Plan: Blood pressure has improved. Patient counseled regarding the importance of compliance with outpatient hypertensive medications. Believe patient has nephrosclerosis with CKD secondary to uncontrolled hypertension over the last several years. Still awaiting aldosterone, renin and 24-hour urine for catecholamines. These can be reviewed as an outpatient. Patient was advised to make an appointment to see me in approximately 2-3 weeks. Once 24-hour urine completed discharge okay from renal point of view. Patient will be seen when necessary in house for the present. Hopefully the patient will be more compliant with medical follow-up. He was advised he is at high risk for progression to end-stage renal disease with its implications if he is not more compliant. Medications should be adjusted for the patient's renal insufficiency. Avoid nephrotoxic agents such as iodinated contrast dyes and NSAIDs. Avoid gadolinium when eGFR <30. (2) Hypertension Plan: BP improved. Screen for secondary causes of hypertension as above. (3) Tobacco abuse Plan: Counselled about cessation. Mentions he is interested in nicotine patches as outpatient---will defer to primary. (4) Vitamin D deficiency Plan: Start on Ergocalciferol 50,000U once weekly. Fili Gaitan MD September 26, 2016 16:50
--- NOTE | 2016-09-26 17:12 | HHI.PR ---
Subjective Remarks Patient is very tired. He said he is drinking water and he has a good urine output. His blood pressure was elevated in the morning, however spelled a now after medications. Pain in his feet improved. No fever or chills. [place] no associated but did not vomit. Has low appetite. No headaches, change in vision no motor deficit or sensory deficit. Objective Vitals Vital Signs Date Time Temp Pulse Resp B/P Pulse Ox O2 Delivery O2 Flow Rate FiO2 09/26/16 16:00 98.0 89 18 164/100 99 09/26/16 12:00 98.6 68 18 141/94 97 09/26/16 08:00 97.3 77 18 189/94 98 09/26/16 04:00 98.2 85 20 161/98 98 09/26/16 00:00 Room Air 09/26/16 00:00 97.5 86 18 154/79 99 09/25/16 20:33 64 09/25/16 20:00 Room Air 09/25/16 20:00 98.4 78 20 151/95 98 09/25/16 17:38 18 I/O 09/25/16 09/25/16 09/25/16 09/26/16 09/26/16 09/26/16 07:00 15:00 23:00 07:00 15:00 23:00 Intake Total 960 ml 240 ml 240 ml Output Total 350 ml 300 ml Balance -350 ml 660 ml 240 ml 240 ml Intake Oral 960 ml 240 ml 240 ml Output Urine Total 350 ml 300 ml # Voids 5 0 0 # Bowel Movements 0 1 0 0 Result Diagram: 09/26/16 0708 09/26/16 0708 Imaging Last Impressions Renal Ultrasound 09/24/16 0000 Signed Impressions: Service Date/Time: Saturday, September 24, 2016 11:12 - CONCLUSION: Normal renal sonogram. Kaiden Dubose MD Abdomen/Pelvis CT 09/22/16 0214 Signed Impressions: Service Date/Time: Thursday, September 22, 2016 03:49 - CONCLUSION: 1. Status post cholecystectomy. 2. No acute abdominal/pelvic pathology. Francisco Carvalho MD Objective Remarks GENERAL: This is a well-nourished, well-developed patient, appears painful with movement SKIN: No rashes, ecchymoses or lesions. Cool and dry. HEAD: Atraumatic. Normocephalic. No temporal or scalp tenderness. EYES: Extraocular motions intact. No scleral icterus. No injection or drainage. CARDIOVASCULAR: Regular rate and rhythm without murmurs, gallops, or rubs. RESPIRATORY: Clear to auscultation. Breath sounds equal bilaterally. No wheezes , rales, or rhonchi. GASTROINTESTINAL: Abdomen soft, tender to palpation periumbilical and epigastric , nondistended. No guarding. MUSCULOSKELETAL: Extremities without clubbing, cyanosis, or edema. No joint tenderness, effusion, or edema noted. No calf tenderness. Negative Homans sign bilaterally. NEUROLOGICAL: Awake and alert. Motor and sensory grossly within normal limits. Five out of 5 muscle strength in all muscle groups. Normal speech. A/P Problem List: (1) Abdominal pain ICD Code: R10.9 Status: Acute (2) Acute renal failure superimposed on stage 2 chronic kidney disease ICD Code: N17.9 Status: Acute (3) Hypertension ICD Code: I10 Status: Chronic (4) Porokeratosis ICD Code: Q82.8 Status: Acute Assessment and Plan This a 36 year old male patient with past medical history which includes sleep apnea which no longer requires CPAP as he has lost 100 pounds and hypertension. Patient had a cholecystomy approximally 6 weeks ago was recovering well then woke up between 9-10 this AM due to severe abdominal pain in the periumbilical/midepigastric area. The pain was associated with N/V x1. Patient describes the pain as a spasm. Abdominal pain only slightly better after morphine 4 mg x2. Patient has also been having constipation x 1 day. Patient reports abdominal pain feels as though it's, "jumping," and is worse with movement. Patient denies dysuria, penile pain or discharge. Patient also denies chest pain or shortness of breath. GIRMA possibly related to dehydration. Slowly improving with IVF hold lisinopril at this time NS at 125ml/H. Has a good UOP. recheck labs in AM, monitor kidney function Consult nephrology. Kidney US reviewed, normal. Encourage PO hydration. UA no signs of UTI. Vit D deficiency, severe. Replaced with ergocalciferol. Uncontrolled HTN pain control wir po and IV meds per pain scale. Add dilaudid 1 mg IV for breakthrough pain. Continue Flexeril 10 mg PO x1. Monitor VS. Increase Norvasc to 5 mg bid . Increased hydralazine to 50 mg po Q8hrs as BP still not controlled. Hydralazine 10 mg IV as needed Abdominal pain. Resolved. supportive care Dilaudid IV and [place] PO CT reviewed: Status post cholecystectomy. No acute abdominal/pelvic pathology. Lipase 136, LFTs reviewed total bilirubin 0.5 AST 19 ALT 20 alkaline phosphatase is 63 Urinalysis reviewed protein high nitrates negative moderate leukocyte esterase no culture indicated Multiple painful lesions on his feet. Will consult podiatry for evaluation. Patient with porokeratosis, appreciate podiatry recommendations. Patient to follow up as OP with podiatry DVT prophylaxis SCDs Discussed with patient. nurse DC plan : When improved and cleared by consultants, BP uncontrolled , also kidney function slowly improving Discharged once 24 hrs urine compleated per nephro. Sandrine Eckert MD September 26, 2016 17:12
[2016-09-26] MEDS ORDERED: AMLO5 PO (17:17)
[2016-09-26] MEDS ORDERED: HYDR25TA35 PO (17:17)
[2016-09-26] MEDS ORDERED: LACT12LO4 TOPICAL (17:17)
[2016-09-26] MEDS ORDERED: DRIS50002 PO (17:17)
--- NOTE | 2016-09-26 17:17 | HHI.DS ---
Discharge Summary Admission Date September 22, 2016 at 04:27 Discharge Date: September 26, 2016 Admitting Diagnosis Acute on chronic kidney injury, uncontrolled htn, abdominal pain. (1) Abdominal pain ICD Code: R10.9 Diagnosis: Principal (2) Acute renal failure superimposed on stage 2 chronic kidney disease ICD Code: N17.9 Diagnosis: Principal (3) Hypertension ICD Code: I10 Diagnosis: Principal (4) Porokeratosis ICD Code: Q82.8 Diagnosis: Principal Procedures none Brief History - From Admission This a 36 year old male patient with past medical history which includes sleep apnea which no longer requires CPAP as he has lost 100 pounds and hypertension. Patient had a cholecystomy approximally 6 weeks ago was recovering well then woke up between 9-10 this AM due to severe abdominal pain in the periumbilical/midepigastric area. The pain was associated with N/V x1. Patient describes the pain as a spasm. Abdominal pain only slightly better after morphine 4 mg x2. Patient has also been having constipation x 1 day. Patient reports abdominal pain feels as though it's, "jumping," and is worse with movement. Patient denies dysuria, penile pain or discharge. Patient also denies chest pain or shortness of breath. CBC/BMP: 09/26/16 0708 09/26/16 0708 Significant Findings Laboratory Tests Test 09/24/16 09/25/16 09/26/16 07:17 06:29 07:08 Creatinine 1.95 MG/DL 1.87 MG/DL 1.83 MG/DL (0.60-1.30) (0.60-1.30) (0.60-1.30) Estimat Glomerular Filtration 47 ML/MIN (>89) 50 ML/MIN (>89) 51 ML/MIN (>89) Rate 25-Hydroxy Vitamin D Total 5.6 ng/ML (30-100) Monocytes (%) (Auto) 9.8 % (0.0-8.0) Imaging Last Impressions Renal Ultrasound 09/24/16 0000 Signed Impressions: Service Date/Time: Saturday, September 24, 2016 11:12 - CONCLUSION: Normal renal sonogram. Kaiden Dubose MD Abdomen/Pelvis CT 09/22/16 0214 Signed Impressions: Service Date/Time: Thursday, September 22, 2016 03:49 - CONCLUSION: 1. Status post cholecystectomy. 2. No acute abdominal/pelvic pathology. Francisco Carvalho MD PE at Discharge GENERAL: This is a well-nourished, well-developed patient, appears painful with movement SKIN: No rashes, ecchymoses or lesions. Cool and dry. HEAD: Atraumatic. Normocephalic. No temporal or scalp tenderness. EYES: Extraocular motions intact. No scleral icterus. No injection or drainage. CARDIOVASCULAR: Regular rate and rhythm without murmurs, gallops, or rubs. RESPIRATORY: Clear to auscultation. Breath sounds equal bilaterally. No wheezes , rales, or rhonchi. GASTROINTESTINAL: Abdomen soft, tender to palpation periumbilical and epigastric , nondistended. No guarding. MUSCULOSKELETAL: Extremities without clubbing, cyanosis, or edema. No joint tenderness, effusion, or edema noted. No calf tenderness. Negative Homans sign bilaterally. NEUROLOGICAL: Awake and alert. Motor and sensory grossly within normal limits. Five out of 5 muscle strength in all muscle groups. Normal speech. Hospital Course This a 36 year old male patient with past medical history which includes sleep apnea which no longer requires CPAP as he has lost 100 pounds and hypertension. Patient had a cholecystomy approximally 6 weeks ago was recovering well then woke up between 9-10 this AM due to severe abdominal pain in the periumbilical/midepigastric area. The pain was associated with N/V x1. Patient describes the pain as a spasm. Abdominal pain only slightly better after morphine 4 mg x2. Patient has also been having constipation x 1 day. Patient reports abdominal pain feels as though it's, "jumping," and is worse with movement. Patient denies dysuria, penile pain or discharge. Patient also denies chest pain or shortness of breath. GIRMA on CKD2. Patient with long standing HTN , uncontrolled. Kidney function slowly improving with IVF hold lisinopril and discontinue NS at 125ml/H. Has a good UOP. recheck labs in AM, monitor kidney function Consult nephrology. Kidney US reviewed, normal. Encourage PO hydration. UA no signs of UTI. Labs are still pending however per nephrology patient can be DC when urine collection is done . Patient can follow up as OP with nephrology. Vit D deficiency, severe. Replaced with ergocalciferol. Continue at DC Uncontrolled HTN pain control wir po and IV meds per pain scale. Add dilaudid 1 mg IV for breakthrough pain. Continue Flexeril 10 mg PO x1. Monitor VS. Increase Norvasc to 5 mg bid . Increased hydralazine to 50 mg po Q8hrs as BP still not controlled. Hydralazine 10 mg IV as needed Abdominal pain. Resolved. supportive care Dilaudid IV and [place] PO CT reviewed: Status post cholecystectomy. No acute abdominal/pelvic pathology. Lipase 136, LFTs reviewed total bilirubin 0.5 AST 19 ALT 20 alkaline phosphatase is 63 Urinalysis reviewed protein high nitrates negative moderate leukocyte esterase no culture indicated Multiple painful lesions on his feet. Will consult podiatry for evaluation. Patient with porokeratosis, appreciate podiatry recommendations. Patient to follow up as OP with podiatry DVT prophylaxis SCDs Discussed with patient. nurse DC plan : When improved and cleared by consultants, BP uncontrolled , also kidney function slowly improving. Per nephrology patient has CKD Discharged once 24 hrs urine compleated per nephro. Nephrology will follow up as OP results. Pt Condition on Discharge: Stable Discharge Disposition: Discharge Home Discharge Time: > 30 minutes Discharge Instructions DIET: Follow Instructions for: Heart Healthy Diet, Renal Failure Diet Activities you can perform: Regular-No Restrictions Follow up Referrals: Nephrology - 1 Week with Fili Gaitan MD PCP Follow-up - 3-5 Days with Adrienne Griffith MD Podiatry - 1 Week New Medications: Amlodipine (Norvasc) 5 Mg Tab 5 MG PO BID Blood Pressure Management #30 TAB Ergocalciferol (Drisdol) 50,000 Unit Cap 97968 UNITS PO Q7D vit D deficiency #10 CAP Hydralazine (Hydralazine) 25 Mg Tab 50 MG PO Q8HR Blood Pressure Management #90 TAB Lactic Acid (Ammonium Lactate) (Amlactin) 12 % Lot 1 APPLIC TOPICAL BID foot lesions #4 TUBE Continued Medications: Hydrocodone-Acetaminophen ([place]) 7.5-325 mg Tab 1-2 TAB PO Q4H PRN PAIN #30 Ref 0 TAB Discontinued Medications: Lisinopril (Lisinopril) 20 Mg Tab 20 MG PO DAILY #30 Ref 3 TAB Sandrine Eckert MD September 26, 2016 17:17
[2016-09-26] MEDS ORDERED: cloNIDine HCL 0.1 MG TAB PO PRN (21:45)
[2016-09-27] MEDS: DOCUSATE SODIUM 100 MG CAP PO SCH ×2 (04:15→15:26)
[2016-09-27 05:25] VITALS: BP 138/90; PULSE 75; RESP 16; TEMP 97.7; O2SAT 96
[2016-09-27] MEDS: HYDROmorphone HCL PF 1 MG/ML VIAL IV PUSH PRN ×2 (05:49→10:33)
[2016-09-27] MEDS: SODIUM CHLORIDE 0.9% FLUSH 10 ML FLUSH IV FLUSH PRN (05:49)
[2016-09-27] MEDS: hydrALAZINE HCL 25 MG TAB PO SCH ×2 (05:49→13:53)
[2016-09-27 07:27] LABS: BASOPHIL # 0.1 TH/MM3 (0-0.2); BASOPHIL % 0.9 % (0.0-2.0); EOSINOPHIL # 0.1 TH/MM3 (0-0.4); EOSINOPHIL % 1.2 % (0.0-4.0); HEMATOCRIT 48.8 % (39.0-51.0); HEMO FLAGS DIFF FINAL; LYMPH % 26.5 % (9.0-44.0); LYMPHOCYTE # 2.5 TH/MM3 (1.0-4.8); MEAN CELL VOLUME 90.5 FL (80.0-100.0); MEAN CORPUSCULAR HEMOGLOBIN 29.8 PG (27.0-34.0); MEAN CORPUSCULAR HGB CONC 32.9 % (32.0-36.0); MONO % 8.3 % (0.0-8.0); NEUT % 63.1 % (16.0-70.0); PLATELET COUNT 267 TH/MM3 (150-450); RED BLOOD COUNT 5.38 MIL/MM3 (4.50-5.90); WHITE BLOOD COUNT 9.5 TH/MM3 (4.0-11.0)
[2016-09-27 07:57] LABS: BICARBONATE 28.5 MEQ/L (21.0-32.0); POTASSIUM 3.8 MEQ/L (3.5-5.1)
[2016-09-27 08:00] VITALS: BP 157/91; PULSE 89; RESP 18; TEMP 98; O2SAT 98
[2016-09-27] MEDS: LACTIC ACID (AMMONIUM LACTATE) 12% LOTION 225 GM BTL TOPICAL SCH (09:00)
[2016-09-27] MEDS: SODIUM CHLORIDE 0.9% FLUSH 10 ML FLUSH IV FLUSH SCH (09:00)
[2016-09-27] MEDS: amLODIPine BESYLATE 5 MG TAB PO SCH (09:14)
[2016-09-27 09:20] VITALS: PULSE 80
--- NOTE | 2016-09-27 11:11 | HHI.PR ---
Subjective Remarks Follow-up acute kidney injury. Patient doing okay requesting refill of pain medicine which he received after undergoing gallbladder surgery 6 weeks ago. I politely declined and told him to get off narcotics. Discussed with RN, patient will be discharged after completion of 24-hour urine collection Objective Vitals Vital Signs Date Time Temp Pulse Resp B/P Pulse Ox O2 Delivery O2 Flow Rate FiO2 09/27/16 09:20 80 09/27/16 09:20 Room Air 09/27/16 08:00 98.0 89 18 157/91 98 09/27/16 05:25 97.7 75 16 138/90 96 09/27/16 05:25 Room Air 09/26/16 23:27 Room Air 09/26/16 23:27 98.8 88 16 156/95 97 09/26/16 21:18 99.1 77 16 133/91 97 09/26/16 21:18 Room Air 09/26/16 20:14 92 09/26/16 16:20 20 09/26/16 16:00 98.0 89 18 164/100 99 09/26/16 13:23 20 09/26/16 12:00 98.6 68 18 141/94 97 I/O 09/26/16 09/26/16 09/26/16 09/27/16 09/27/16 09/27/16 07:00 15:00 23:00 07:00 15:00 23:00 Intake Total 240 ml 480 ml 480 ml 720 ml Output Total 325 ml 600 ml Balance 240 ml 480 ml 155 ml 120 ml Intake Oral 240 ml 480 ml 480 ml 720 ml Output Urine Total 325 ml 600 ml # Voids 0 3 # Bowel Movements 0 1 0 0 Result Diagram: 09/27/16 0630 09/27/16 0630 Imaging Last Impressions Renal Ultrasound 09/24/16 0000 Signed Impressions: Service Date/Time: Saturday, September 24, 2016 11:12 - CONCLUSION: Normal renal sonogram. Kaiden Dubose MD Abdomen/Pelvis CT 09/22/16 0214 Signed Impressions: Service Date/Time: Thursday, September 22, 2016 03:49 - CONCLUSION: 1. Status post cholecystectomy. 2. No acute abdominal/pelvic pathology. Francisco Carvalho MD Objective Remarks GENERAL: Well-developed obese in no distress SKIN: Warm and dry. HEAD: Atraumatic. Normocephalic. EYES: Pupils equal and round. No scleral icterus. No injection or drainage. ENT: No nasal bleeding or discharge. Mucous membranes pink and moist. NECK: Trachea midline. No JVD. CARDIOVASCULAR: Regular rate and rhythm. RESPIRATORY: No accessory muscle use. Clear to auscultation. Breath sounds equal bilaterally. GASTROINTESTINAL: Abdomen soft, non-tender, nondistended. MUSCULOSKELETAL: Extremities without clubbing, cyanosis, or edema. No obvious deformities. NEUROLOGICAL: Awake and alert. No obvious cranial nerve deficits. Motor grossly within normal limits. Five out of 5 muscle strength in the arms and legs. Normal speech. PSYCHIATRIC: Appropriate mood and affect; insight and judgment normal. Procedures none A/P Problem List: (1) Abdominal pain ICD Code: R10.9 Status: Acute (2) Hypertension ICD Code: I10 Status: Chronic (3) Porokeratosis ICD Code: Q82.8 Status: Chronic Assessment and Plan This a 36 year old male patient with past medical history which includes sleep apnea which no longer requires CPAP as he has lost 100 pounds and hypertension. Patient had a cholecystomy approximally 6 weeks ago was recovering well then woke up between 9-10 this AM due to severe abdominal pain in the periumbilical/midepigastric area. The pain was associated with N/V x1. Patient describes the pain as a spasm. Abdominal pain only slightly better after morphine 4 mg x2. Patient has also been having constipation x 1 day. Patient reports abdominal pain feels as though it's, "jumping," and is worse with movement. Patient denies dysuria, penile pain or discharge. Patient also denies chest pain or shortness of breath. GIRMA possibly related to dehydration on chronic kidney disease stage II to 3 hold lisinopril at this time Improving status post NS recheck labs outpatient Uncontrolled HTN control pain- dilaudid 0.5mg IV with Flexeril 10 mg PO x1 Improving continue Norvasc and hydralazine Follow-up workup for secondary hypertension outpatient Abdominal pain supportive care Dilaudid IV and [place] PO. Counseled regarding narcotics CT reviewed Status post cholecystectomy. 2. No acute abdominal/pelvic pathology. Lipase 136, LFTs reviewed total bilirubin 0.5 AST 19 ALT 20 alkaline phosphatase is 63 Urinalysis reviewed protein high nitrates negative moderate leukocyte esterase no culture indicated DVT prophylaxis SCDs Discharge Planning Discharge home Brown Burgos MD September 27, 2016 11:11
--- NOTE | 2016-09-27 11:12 | HHI.DS ---
Discharge Summary Admission Date September 22, 2016 at 04:27 Discharge Date: September 27, 2016 Admitting Diagnosis Acute on chronic kidney injury, uncontrolled htn, abdominal pain. (1) Abdominal pain ICD Code: R10.9 Diagnosis: Principal (2) Hypertension ICD Code: I10 Diagnosis: Principal (3) Porokeratosis ICD Code: Q82.8 Diagnosis: Secondary Procedures none Brief History - From Admission This a 36 year old male patient with past medical history which includes sleep apnea which no longer requires CPAP as he has lost 100 pounds and hypertension. Patient had a cholecystomy approximally 6 weeks ago was recovering well then woke up between 9-10 this AM due to severe abdominal pain in the periumbilical/midepigastric area. The pain was associated with N/V x1. Patient describes the pain as a spasm. Abdominal pain only slightly better after morphine 4 mg x2. Patient has also been having constipation x 1 day. Patient reports abdominal pain feels as though it's, "jumping," and is worse with movement. Patient denies dysuria, penile pain or discharge. Patient also denies chest pain or shortness of breath. CBC/BMP: 09/27/16 0630 09/27/16 0630 Significant Findings Laboratory Tests Test 09/25/16 09/26/16 09/27/16 06:29 07:08 06:30 Creatinine 1.87 MG/DL 1.83 MG/DL 1.64 MG/DL (0.60-1.30) (0.60-1.30) (0.60-1.30) Estimat Glomerular Filtration 50 ML/MIN (>89) 51 ML/MIN (>89) 58 ML/MIN (>89) Rate 25-Hydroxy Vitamin D Total 5.6 ng/ML (30-100) Monocytes (%) (Auto) 9.8 % (0.0-8.0) 8.3 % (0.0-8.0) Imaging Last Impressions Renal Ultrasound 09/24/16 0000 Signed Impressions: Service Date/Time: Saturday, September 24, 2016 11:12 - CONCLUSION: Normal renal sonogram. Kaiden Dubose MD Abdomen/Pelvis CT 09/22/16 0214 Signed Impressions: Service Date/Time: Thursday, September 22, 2016 03:49 - CONCLUSION: 1. Status post cholecystectomy. 2. No acute abdominal/pelvic pathology. Francisco Carvalho MD PE at Discharge GENERAL: Well-developed obese in no distress SKIN: Warm and dry. HEAD: Atraumatic. Normocephalic. EYES: Pupils equal and round. No scleral icterus. No injection or drainage. ENT: No nasal bleeding or discharge. Mucous membranes pink and moist. NECK: Trachea midline. No JVD. CARDIOVASCULAR: Regular rate and rhythm. RESPIRATORY: No accessory muscle use. Clear to auscultation. Breath sounds equal bilaterally. GASTROINTESTINAL: Abdomen soft, non-tender, nondistended. MUSCULOSKELETAL: Extremities without clubbing, cyanosis, or edema. No obvious deformities. NEUROLOGICAL: Awake and alert. No obvious cranial nerve deficits. Motor grossly within normal limits. Five out of 5 muscle strength in the arms and legs. Normal speech. PSYCHIATRIC: Appropriate mood and affect; insight and judgment normal. Hospital Course This a 36 year old male patient with past medical history which includes sleep apnea which no longer requires CPAP as he has lost 100 pounds and hypertension. Patient had a cholecystomy approximally 6 weeks ago was recovering well then woke up between 9-10 this AM due to severe abdominal pain in the periumbilical/midepigastric area. The pain was associated with N/V x1. Patient describes the pain as a spasm. Abdominal pain only slightly better after morphine 4 mg x2. Patient has also been having constipation x 1 day. Patient reports abdominal pain feels as though it's, "jumping," and is worse with movement. Patient denies dysuria, penile pain or discharge. Patient also denies chest pain or shortness of breath. GIRMA possibly related to dehydration on chronic kidney disease stage II to 3 hold lisinopril at this time Improving status post NS recheck labs outpatient Uncontrolled HTN control pain- dilaudid 0.5mg IV with Flexeril 10 mg PO x1 Improving continue Norvasc and hydralazine Follow-up workup for secondary hypertension outpatient Abdominal pain supportive care Dilaudid IV and [place] PO. Counseled regarding narcotics CT reviewed Status post cholecystectomy. 2. No acute abdominal/pelvic pathology. Lipase 136, LFTs reviewed total bilirubin 0.5 AST 19 ALT 20 alkaline phosphatase is 63 Urinalysis reviewed protein high nitrates negative moderate leukocyte esterase no culture indicated DVT prophylaxis SCDs Pt Condition on Discharge: Stable Discharge Disposition: Discharge Home Discharge Time: > 30 minutes Discharge Instructions DIET: Follow Instructions for: Heart Healthy Diet, Renal Failure Diet Activities you can perform: Regular-No Restrictions Follow up Referrals: Nephrology - 1 Week with Fili Gaitan MD PCP Follow-up - 3-5 Days with Adrienne Griffith MD Podiatry - 1 Week New Medications: Amlodipine (Norvasc) 5 Mg Tab 5 MG PO BID Blood Pressure Management #30 TAB Ergocalciferol (Drisdol) 50,000 Unit Cap 40964 UNITS PO Q7D vit D deficiency #10 CAP Hydralazine (Hydralazine) 25 Mg Tab 50 MG PO Q8HR Blood Pressure Management #90 TAB Lactic Acid (Ammonium Lactate) (Amlactin) 12 % Lot 1 APPLIC TOPICAL BID foot lesions #4 TUBE Continued Medications: Hydrocodone-Acetaminophen ([place]) 7.5-325 mg Tab 1-2 TAB PO Q4H PRN PAIN #30 Ref 0 TAB Discontinued Medications: Lisinopril (Lisinopril) 20 Mg Tab 20 MG PO DAILY #30 Ref 3 TAB Brown Burgos MD September 27, 2016 11:12
[2016-09-27 12:00] VITALS: BP 139/88; PULSE 83; RESP 18; TEMP 97.8; O2SAT 98
[2016-09-27] MEDS: ACETAMINOPHEN/HYDROcodone 325 MG/7.5 MG TAB PO PRN (13:54)
[2016-09-27 22:46] LABS: URINE TOTAL PROTEIN TIMED 13.4 MG/DL
[2016-09-28 16:41] LABS: METANEPHRINE 24 COLLECTION DUR 24 h (())
[2016-09-29 23:53] LABS: DOPAMINE 70 pg/mL (()); EPINEPHRINE 36 pg/mL (()); NOREPINEPHRINE 209 pg/mL (())
== END 2016-09-27 18:22 | disposition home or self-care (01) | DRG 684 ==
LOC: NEPE 00:48 → NEDA 04:27 → OBSVTOIN 04:27 → N04A 07:40
PROVIDERS: ADMIT Internal Medicine; ATTEND Internal Medicine
DX: N17.9 Acute kidney failure, unspecified (principal); E55.9 Vitamin D deficiency, unspecified; I12.9 Hypertensive chronic kidney disease with stage 1 through stage 4 chronic kidney disease, or unspecified chronic kidney disease; N18.2 Chronic kidney disease, stage 2 (mild); E86.0 Dehydration; Q82.8 Other specified congenital malformations of skin; R10.13 Epigastric pain; Z98.890 Other specified postprocedural states; E66.9 Obesity, unspecified; Z68.29 Body mass index [BMI] 29.0-29.9, adult; F17.210 Nicotine dependence, cigarettes, uncomplicated; Z91.19 Patient's noncompliance with other medical treatment and regimen
CPT/HCPCS: 74176; 76775; 80048; 80053; 80069; 81001; 82088; 82306; 82384; 83690; 83835; 83970; 84157; 84244; 85025; 86038; 86160; 86317; 86803; 87340; 96361; 96374; 96375; 96376; J0360; J1170; J2270; J2405; J7030; Q9963

== ENCOUNTER → 2016-10-11 | Outpatient (CLI) | payer SELFPAY ==
[~2016-10-11] MED LIST changes: +AMLO5 PO; +DRIS50002 PO; +HYDR25TA35 PO; +LACT12LO4 TOPICAL; -LISI-515 PO
[2016-10-11 14:48] LABS: BICARBONATE 27.2 MEQ/L (21.0-32.0); POTASSIUM 4.1 MEQ/L (3.5-5.1)
== END ==
LOC: CLAB 14:08
PROVIDERS: ATTEND Internal Medicine Nephrology
DX: N28.9 Disorder of kidney and ureter, unspecified (principal)
CPT/HCPCS: 36415; 80069

== ENCOUNTER 2017-02-02 16:36 | Emergency (ER) | payer OTHER ==
[~2017-02-02] VITALS: Ht 193 cm; Wt 111.5 kg
[2017-02-02 16:38] VITALS: BP 172/98; PULSE 92; RESP 12; TEMP 98.9; O2SAT 98
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
[2017-02-02] MEDS ORDERED: CYCLOBENZAPRINE HCL 10 MG TAB PO ONE (17:15)
[2017-02-02] MEDS ORDERED: NAPROXEN 500 MG TAB PO ONE (17:15)
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
[2017-02-02] MEDS ORDERED: CYCL1TAB29 PO (18:12)
== END 2017-02-02 18:27 | disposition home or self-care (01) ==
LOC: NEPK 16:36
DX: S16.1XXA Strain of muscle, fascia and tendon at neck level, initial encounter (principal); S39.012A Strain of muscle, fascia and tendon of lower back, initial encounter; V43.52XA Car driver injured in collision with other type car in traffic accident, initial encounter; Y92.481 Parking lot as the place of occurrence of the external cause
CPT/HCPCS: 72050; 72100; 99283